=== PATIENT | male | born 1955 | race Caucasian/White ===

== ENCOUNTER 2016-11-13 09:52 | Inpatient (IN) | payer BC, OTHER ==
[~2016-11-13] VITALS: Ht 170.2 cm; Wt 50.0 kg
[~2016-11-13 09:52] MED LIST: CRG625 PO; LEVO88TA PO; LPT40 PO; LVS125 PO; MORP15TA PO; NTRGSL/4 UT; OXGN; PANT20TA PO; PLV75 PO; PRED10TA PO; RST15 PO; SPRIN/30 INH; SYMIN160 INH; THEO1CAP2 PO; VNTHFA/IN INH
[2016-11-13] MEDS ORDERED: MAGNESIUM SULFATE 1GM / D5W 1 GM BAG ONE (09:59)
--- NOTE | 2016-11-13 10:10 | EMERGENCY ROOM VISIT NOTE ---
History Report prepared by Radhika: Brian Barahona Under the Supervision of: Dr. Ted Carpenter M.D. First contact with patient: 09:54 Stated Complaint: SHORTNESS OF BREATH History of Present Illness The patient is a 60 year old male who presents to the Emergency Room via EMS with complaints of severe and persistent shortness of breath starting today. He has worsening difficulty breathing with movement. The patient cannot receive breathing treatments or be placed on BiPAP. He received 125 mg Solu-Medrol in route to the Emergency Room with some relief. He denies fevers, chills, chest pain, or any other complaints. He has a history of COPD and respiratory failure. Source of History: patient Onset: today Position: other (global) Symptom Intensity: severe Quality: other (shortness of breath) Timing: other (persistent) Modifying Factors (Worsening): movement Modifying Factors (Relieving): other (received 125 mg Solu-Medrol in route to the Emergency Room with some relief) Associated Symptoms: No chest pain, No chills, No fevers Review of Systems See HPI for pertinent positives & negatives. A total of 10 systems reviewed and were otherwise negative. Past Medical & Surgical Medical Problems: (1) Acute respiratory failure (2) Anxiety (3) ARDS (adult respiratory distress syndrome) (4) CAD (coronary artery disease) (5) Chest pain (6) Constipation (7) COPD (chronic obstructive pulmonary disease) (8) COPD exacerbation (9) COPD exacerbation (10) COPD exacerbation (11) COPD exacerbation (12) COPD exacerbation (13) COPD exacerbation (14) Coronary Atherosclerosis Of [place] Coronary Vessel (15) Dyslipidemia (16) Emphysema (17) Hypertension Nos (18) Hypothyroidism (19) Pneumonia (20) Respiratory distress (21) Respiratory failure (22) Severe persistent cold-induced asthma with acute exacerbation (23) Supplemental Oxygen (24) Very severe chronic obstructive pulmonary disease Surgical Problems: (1) History of tonsillectomy (2) Percutaneous Translum Coron Angioplasty Status (3) Stented coronary artery Family History Not obtainable due to adoption Social History Smoking Status: Former Smoker Alcohol Use: none Drug Use: none Marital Status: Housing Status: lives with family Occupation Status: retired Current/Historical Medications Scheduled Atorvastatin (Atorvastatin Calcium), 40 MG PO HS Budesonide/Formoterol Fumarate (Symbicort 160/4.5 Inhaler ), 2 PUFFS INH BID Carvedilol (Carvedilol), 6.25 MG PO BID Clopidogrel Bisulfate (Clopidogrel), 75 MG PO DAILY Oxygen (Oxygen), 2-3 LITER NA CONTINOUS Pantoprazole Sodium (Protonix), 40 MG PO DAILY Prednisone Tab (Prednisone), 10 MG PO QAM Theophylline (Williams-24), 400 MG PO DAILY Tiotropium Carmichael (Spiriva Handihaler), 1 PUFF INH DAILY Scheduled PRN Albuterol Hfa (Ventolin Hfa), 2 PUFFS INH QID PRN for Wheezing Hyoscyamine Sulfate (Hyoscyamine Sulfate), 0.125 MG PO Q6H PRN for Abdominal Pain Morphine Sulfate Ir (Morphine Sulfate Ir), 15-30 MG PO Q4H PRN for Pain Nitroglycerin (Nitrostat), 0.4 MG UT UD PRN for Chest Pain Temazepam (Temazepam), 15 MG PO HS PRN for Sleep Allergies Coded Allergies: Doxycycline (Unverified Allergy, Intermediate, TURNS RED, 11/13/16) Albuterol (Verified Allergy, Mild, hypoxia, 11/13/16) Azithromycin (Verified Allergy, Mild, hypoxia, 11/13/16) Ipratropium (Verified Allergy, Mild, hypoxia, 11/13/16) Levofloxacin (Verified Allergy, Mild, hypoxia, 11/13/16) Physical Exam Vital Signs Date Time Temp Pulse Resp B/P Pulse Ox O2 Delivery O2 Flow Rate FiO2 11/13/16 11:52 73 16 96 11/13/16 11:36 76 16 135/84 98 Nasal Cannula 3.0 11/13/16 11:22 76 14 100 11/13/16 11:20 135/84 11/13/16 10:52 77 14 99 11/13/16 10:32 76 20 134/98 96 Nasal Cannula 3.0 Nebulizer 11/13/16 10:30 134/98 11/13/16 10:22 79 17 97 11/13/16 10:13 96 Nasal Cannula 2.0 11/13/16 10:07 36.7 81 20 153/133 96 Nasal Cannula 3.0 11/13/16 10:07 96 Nasal Cannula 3.0 11/13/16 10:02 82 11/13/16 09:55 153/133 Physical Exam GENERAL: Patient is a healthy-appearing well-nourished HEAD: Normocephalic atraumatic EYES: Ocular movements intact pupils equal and react to light OROPHARYNX mucous membranes are moist no exudates present no erythema or edema present NECK: Supple no nuchal rigidity CHEST: Good equal expansion LUNGS: Says three words per breath. Distant lung sounds. CARDIAC: Normal S1 and S2 ABDOMEN: Soft nontender no guarding BACK: No CVA tenderness EXTREMITIES: No pain upon palpation normal muscle strength in all groups no clubbing cyanosis or edema NEURO: Patient is following commands is answering questions appropriately. Alert and oriented x3 Cranial Nerves 2-12 grossly intact Medical Decision & Procedures ER Provider Diagnostic Interpretation: X-ray results as stated below per interpretation by me and the radiologist: CHEST ONE VIEW PORTABLE CLINICAL HISTORY: Shortness of breath COMPARISON STUDY: 08/28/2016 FINDINGS: The cardiac and mediastinal contours remain stable. There is mild elevation of the interstitium similar to the prior study likely chronic. There is no lobar consolidation. There are no pleural effusions. There is underlying emphysema.[ IMPRESSION: Pulmonary emphysema and mild interstitial thickening similar to the prior study. No evidence of focal pulmonary consolidation. Electronically signed by: Remi Ly M.D. 11/13/2016 10:22 AM Dictated Date/Time: 11/13/2016 10:20 AM Laboratory Results 11/13/16 10:11 Red Blood Count 4.49, Mean Corpuscular Volume 96.7, Mean Corpuscular Hemoglobin 31.4, Mean Corpuscular Hemoglobin Concent 32.5, Mean Platelet Volume 9.3, Neutrophils (%) (Auto) 84.9, Lymphocytes (%) (Auto) 12.3, Monocytes (%) (Auto) 0.3, Eosinophils (%) (Auto) 2.0, Basophils (%) (Auto) 0.2, Neutrophils # (Auto) 10.11, Lymphocytes # (Auto) 1.46, Monocytes # (Auto) 0.03, Eosinophils # (Auto) 0.24, Basophils # (Auto) 0.02 11/13/16 10:11 Test 11/13/16 10:11 11/13/16 10:12 White Blood Count 11.90 K/uL (4.8-10.8) Red Blood Count 4.49 M/uL (4.7-6.1) Hemoglobin 14.1 g/dL (14.0-18.0) Hematocrit 43.4 % (42-52) Mean Corpuscular Volume 96.7 fL (80-100) Mean Corpuscular Hemoglobin 31.4 pg (25-34) Mean Corpuscular Hemoglobin Concent 32.5 g/dl (32-36) Platelet Count 189 K/uL (130-400) Mean Platelet Volume 9.3 fL (7.4-10.4) Neutrophils (%) (Auto) 84.9 % Lymphocytes (%) (Auto) 12.3 % Monocytes (%) (Auto) 0.3 % Eosinophils (%) (Auto) 2.0 % Basophils (%) (Auto) 0.2 % Neutrophils # (Auto) 10.11 K/uL (1.4-6.5) Lymphocytes # (Auto) 1.46 K/uL (1.2-3.4) Monocytes # (Auto) 0.03 K/uL (0.11-0.59) Eosinophils # (Auto) 0.24 K/uL (0-0.5) Basophils # (Auto) 0.02 K/uL (0-0.2) RDW Standard Deviation 50.7 fL (36.4-46.3) RDW Coefficient of Variation 14.2 % (11.5-14.5) Immature Granulocyte % (Auto) 0.3 % Immature Granulocyte # (Auto) 0.04 K/uL (0.00-0.02) Prothrombin Time 10.7 SECONDS (9.0-12.0) Prothromb Time International Ratio 1.0 (0.9-1.1) Activated Partial Thromboplast Time 24.8 SECONDS (21.0-31.0) Partial Thromboplastin Ratio 1.0 Anion Gap 9.0 mmol/L (3-11) Est Creatinine Clear Calc Drug Dose 75.2 ml/min Estimated GFR () 115.9 Estimated GFR (Non- 100.0 BUN/Creatinine Ratio 25.8 (10-20) Calcium Level 9.5 mg/dl (8.5-10.1) Total Bilirubin 0.7 mg/dl (0.2-1) Aspartate Amino Transf (AST/SGOT) 15 U/L (15-37) Alanine Aminotransferase (ALT/SGPT) 17 U/L (12-78) Alkaline Phosphatase 77 U/L (45-117) Total Creatine Kinase 35 U/L (39-308) Creatine Kinase MB 1.8 ng/ml (0.5-3.6) Creatine Kinase MB Ratio 5.1 (0-3.0) Troponin I < 0.015 ng/ml (0-0.045) Total Protein 6.3 gm/dl (6.4-8.2) Albumin 3.5 gm/dl (3.4-5.0) Globulin 2.8 gm/dl (2.5-4.0) Albumin/Globulin Ratio 1.3 (0.9-2) Influenza Type A (RT-PCR) Neg for Influ A (NEG) Influenza Type B (RT-PCR) Neg for Influ B (NEG) Labs reviewed by ED physician. Medications Administered Medications (Trade) Dose Ordered Sig/Mau Route Start Time Stop Time Status Last Admin Dose Admin Magnesium Sulfate (Magnesium Sulfate) 1 gm STK-MED ONCE .ROUTE 11/13/16 09:59 11/13/16 10:01 DC 11/13/16 10:05 1 GM Morphine Sulfate (MoRPHine SULFATE INJ) 6 mg NOW STAT IV 11/13/16 10:42 11/13/16 10:45 DC 11/13/16 11:03 6 MG Ondansetron HCl (Zofran Inj) 4 mg NOW STAT IV 11/13/16 10:42 11/13/16 10:45 DC 11/13/16 11:02 4 MG Piperacillin Sod/ Tazobactam Sod 4.5 gm 4.5 gm NOW STAT IV 11/13/16 10:42 11/13/16 10:45 DC 11/13/16 11:04 4.5 GM Vancomycin HCl/ Sodium Chloride (Vancomycin Inj/ Nss 250ml) 270 ml @ 125 mls/hr NOW STAT IV 11/13/16 10:42 11/13/16 14:20 DC 11/13/16 11:36 125 MLS/HR ECG Indication: SOB/dyspnea Rate (beats per minute): 80 Rhythm: normal sinus Findings: no acute ischemic change, no ectopy ED Course 0954: Past medical records reviewed. The patient was evaluated in room A12B. A complete history and physical examination was performed. 0959: Magnesium Sulfate 1 gm IV 1042: Vancomycin HCl 1000 mg/Sodium Chloride 270 ml @ 125 mls/hr IV, Zosyn IV 4.5 gm IV, Zofran Inj 4 mg IV, Morphine Sulfate 6 mg IV 1114: Upon reexamination the patient is resting comfortably. I discussed results and treatment plan with the patient. He verbalizes agreement and understanding. [facility] The patient will be evaluated for further management. Medical Decision Differential diagnosis: Etiologies such as infections, reactive airway disease, pneumonia, pneumothorax , COPD, CHF, cardiac ischemia, pulmonary embolism, musculoskeletal, gastrointestinal, as well as others were entertained. This is a 60-year-old male who presents emergency department complaining of shortness of breath. The patient has a history of severe COPD disease. He is allergic to albuterol and cannot take inhalers. He was given Solu-Medrol by EMS on the way to the hospital. I will start the patient on Zosyn and vancomycin as he is allergic to Levaquin and doxycycline as well as azithromycin. I did discuss the case with the hospitalist service who agreed to admit the patient. Patient was in agreement with the treatment plan. Consults Time Called: 1113 Consulting Physician: [facility] Returned Call: [phone] [facility]. Impression Primary Impression: COPD exacerbation Scribe Attestation The scribe's documentation has been prepared under my direction and personally reviewed by me in its entirety. I confirm that the note above accurately reflects all work, treatment, procedures, and medical decision making performed by me. Departure Information Dispostion Being Evaluated By Hospitalist Referrals Hugo Ramos M.D. (PCP)
--- NOTE | 2016-11-13 10:24 | DIAGNOSTIC IMAGING REPORT ---
CHEST ONE VIEW PORTABLE CLINICAL HISTORY: Shortness of breath COMPARISON STUDY: 08/28/2016 FINDINGS: The cardiac and mediastinal contours remain stable. There is mild elevation of the interstitium similar to the prior study likely chronic. There is no lobar consolidation. There are no pleural effusions. There is underlying emphysema.[ IMPRESSION: Pulmonary emphysema and mild interstitial thickening similar to the prior study. No evidence of focal pulmonary consolidation. Electronically signed by: Remi Ly M.D. 11/13/2016 10:22 AM Dictated Date/Time: 11/13/2016 10:20 AM
[2016-11-13 10:26] LABS: BASO % 0.2 %; BASO ABS # 0.02 K/uL (0-0.2); COMPLETE YES; HEMATOCRIT 43.4 % (42-52); IG% 0.3 %; LYMPH % 12.3 %; LYMPH ABS # 1.46 K/uL (1.2-3.4); MEAN CELL VOLUME 96.7 fL (80-100); MEAN CORPUSCULAR HEMOGLOBIN 31.4 pg (25-34); MEAN CORPUSCULAR HGB CONC 32.5 g/dl (32-36); MEAN PLATELET VOLUME 9.3 fL (7.4-10.4); MONO % 0.3 %; NEUT % 84.9 %; PLATELET COUNT 189 K/uL (130-400); RED BLOOD COUNT 4.49 M/uL (4.7-6.1)
[2016-11-13] MEDS ORDERED: ONDANSETRON INJ 2 MG/ML 2 ML VIAL IV STA (10:42)
[2016-11-13] MEDS ORDERED: MoRPHine SULFATE 10 MG/ML CARP/VIAL IV STA (10:42)
[2016-11-13] MEDS ORDERED: VANCOMYCIN INJ 1,000 MG in SODIUM CHLORIDE 0.9% 250ML 250 ML IV STA (10:42)
[2016-11-13] MEDS ORDERED: PIPERACILLIN/TAZOBACTAM 4.5 GM/100ML D5W IV STA (10:42)
[2016-11-13 10:49] LABS: ALT/SGPT 17 U/L (12-78); BLOOD UREA NITROGEN 19 mg/dl (7-18); BUN/CREATININE RATIO 25.8 (10-20); CALCIUM 9.5 mg/dl (8.5-10.1); CARBON DIOXIDE 35 mmol/L (21-32); CHLORIDE 101 mmol/L (98-107); CREATININE 0.72 mg/dl (0.60-1.40); GLUCOSE 130 mg/dl (70-99); POTASSIUM 4.1 mmol/L (3.5-5.1); SODIUM 145 mmol/L (136-145)
[2016-11-13 10:54] LABS: ALB/GLOB RATIO 1.3 (0.9-2); ALKALINE PHOSPHATASE 77 U/L (45-117); AST/SGOT 15 U/L (15-37); CKMB/CK RATIO 5.1 (0-3.0)
--- NOTE | 2016-11-13 11:44 | History and Physical ---
History & Physical Date & Time of Service: Nov 13, 2016 at 11:42 Chief Complaint: Shortness Of Breath Primary Care Physician: Hugo Ramos M.D. History of Present Illness Source: patient This is a 60 yo M with PMHx of COPD on chronic O2, CAD, HTN, dyslipidemia, hypothyroidism, anxiety who has been admitted 9 times in the past year for complaints of shortness of breath in relation to copd exacerbations. Pt presents today with worsening sob for the past 3 days at rest and upon exertion. He had a sick appointment with Dr. Ramos scheduled for today but was did not go because his breathing worsened and instead presented to the ED. Pt reports cough with sputum production is new. He denies sick contacts or recent respiratory illness. He denies fever, chills, body aches. EMS administered Solumedrol 125 mcg in route. He denies having any albuterol nebulizers and adamantly refuses to have these due to previous hx where he needed to be intubated after this. He has been intubated twice. Pt reports his breathing is improved at this time. Past Medical/Surgical History Medical Problems: (1) Acute respiratory failure Status: Resolved (2) Anxiety Status: Chronic (3) ARDS (adult respiratory distress syndrome) Status: Resolved (4) CAD (coronary artery disease) Status: Chronic (5) Chest pain Status: Resolved (6) Constipation Status: Resolved (7) COPD (chronic obstructive pulmonary disease) Status: Chronic (8) COPD exacerbation Status: Resolved (9) COPD exacerbation Status: Resolved (10) COPD exacerbation Status: Resolved (11) COPD exacerbation Status: Resolved (12) COPD exacerbation Status: Resolved (13) COPD exacerbation Status: Resolved (14) Coronary Atherosclerosis Of [place] Coronary Vessel Status: Chronic (15) Dyslipidemia Status: Chronic (16) Emphysema Status: Resolved (17) Hypertension Nos Status: Chronic (18) Hypothyroidism Status: Chronic (19) Pneumonia Status: Resolved (20) Respiratory distress Status: Resolved (21) Respiratory failure Status: Resolved (22) Severe persistent cold-induced asthma with acute exacerbation Status: Resolved (23) Supplemental Oxygen Status: Chronic (24) Very severe chronic obstructive pulmonary disease Status: Resolved Surgical Problems: (1) History of tonsillectomy Status: Resolved (2) Percutaneous Translum Coron Angioplasty Status Status: Resolved (3) Stented coronary artery Status: Chronic Family History Not obtainable due to adoption Social History Smoking Status: Former Smoker Drug Use: none Marital Status: Housing status: lives with significant other Occupational Status: retired Immunizations History of Influenza Vaccine: Yes Influenza Vaccine Date: Jul 18, 2011 History of Tetanus Vaccine?: Yes History of Pneumococcal: Yes Pneumococcal Date: Jul 18, 2011 History of Hepatitis B Vaccine: No Multi-Drug Resistant Organisms History of MDRO: No Allergies Coded Allergies: Doxycycline (Unverified Allergy, Intermediate, TURNS RED, 11/13/16) Albuterol (Verified Allergy, Mild, hypoxia, 11/13/16) Azithromycin (Verified Allergy, Mild, hypoxia, 11/13/16) Ipratropium (Verified Allergy, Mild, hypoxia, 11/13/16) Levofloxacin (Verified Allergy, Mild, hypoxia, 11/13/16) Home Medications Scheduled Atorvastatin (Atorvastatin Calcium), 40 MG PO HS Budesonide/Formoterol Fumarate (Symbicort 160/4.5 Inhaler ), 2 PUFFS INH BID Carvedilol (Carvedilol), 6.25 MG PO BID Clopidogrel Bisulfate (Clopidogrel), 75 MG PO DAILY Oxygen (Oxygen), 2-3 LITER NA CONTINOUS Pantoprazole Sodium (Protonix), 40 MG PO DAILY Prednisone Tab (Prednisone), 10 MG PO QAM Theophylline (Williams-24), 400 MG PO DAILY Tiotropium Dexter (Spiriva Handihaler), 1 PUFF INH DAILY Scheduled PRN Albuterol Hfa (Ventolin Hfa), 2 PUFFS INH QID PRN for Wheezing Hyoscyamine Sulfate (Hyoscyamine Sulfate), 0.125 MG PO Q6H PRN for Abdominal Pain Morphine Sulfate Ir (Morphine Sulfate Ir), 15-30 MG PO Q4H PRN for Pain Nitroglycerin (Nitrostat), 0.4 MG UT UD PRN for Chest Pain Temazepam (Temazepam), 15 MG PO HS PRN for Sleep Review of Systems Constitutional: No chills, No fever, No weight loss Eyes: No diplopia ENT: No sore throat, No tinnitus, No trouble swallowing Respiratory: + cough, + shortness of breath, + sputum, + wheezing Cardiovascular: No chest pain, No palpitations Abdomen: No diarrhea, No nausea, No pain, No vomiting Musculoskeletal: No calf pain, No joint pain, No swelling Genitourinary - Male: No dysuria, No hematuria Neurologic: No numbness/tingling Integumentary: No itch, No rash Physical Exam Vital Signs Date Time Temp Pulse Resp B/P Pulse Ox O2 Delivery O2 Flow Rate FiO2 11/13/16 11:36 76 16 135/84 98 Nasal Cannula 3.0 11/13/16 10:32 76 20 134/98 96 Nasal Cannula 3.0 Nebulizer 11/13/16 10:13 96 Nasal Cannula 2.0 11/13/16 10:07 36.7 81 20 153/133 96 Nasal Cannula 3.0 11/13/16 10:07 96 Nasal Cannula 3.0 11/13/16 10:02 82 General Appearance: + thin, + pertinent finding (frail, appears much older than stated age) Head: normocephalic Eyes: PERRL, EOMI, + pertinent finding (wearing glasses) ENT: hearing grossly normal, pharynx normal, + pertinent finding (mucous membranes dry) Neck: supple, no JVD Respiratory/Chest: + pertinent finding (+ barrel chested, +prolonged expiratory phase, 2 L O2 via nc sats =94% at bedsided, diminished breath sounds throughout, faint crackles in the RLL. No adventitious breath sounds. ) Cardiovascular: regular rate, rhythm, no murmur, normal peripheral pulses Abdomen/GI: normal bowel sounds, non tender, soft Back: normal inspection, no CVA tenderness Extremities/Musculoskelatal: no calf tenderness, no pedal edema, + pertinent finding (thin extremities) Neurologic/Psych: normal mood/affect, oriented x 3 Skin: normal color, warm/dry Diagnostics Laboratory Results Results Past 24 Hours Test 11/13/16 10:11 11/13/16 10:12 Range/Units White Blood Count 11.90 4.8-10.8 K/uL Red Blood Count 4.49 4.7-6.1 M/uL Hemoglobin 14.1 14.0-18.0 g/dL Hematocrit 43.4 42-52 % Mean Corpuscular Volume 96.7 80-100 fL Mean Corpuscular Hemoglobin 31.4 25-34 pg Mean Corpuscular Hemoglobin Concent 32.5 32-36 g/dl Platelet Count 189 130-400 K/uL Mean Platelet Volume 9.3 7.4-10.4 fL Neutrophils (%) (Auto) 84.9 % Lymphocytes (%) (Auto) 12.3 % Monocytes (%) (Auto) 0.3 % Eosinophils (%) (Auto) 2.0 % Basophils (%) (Auto) 0.2 % Neutrophils # (Auto) 10.11 1.4-6.5 K/uL Lymphocytes # (Auto) 1.46 1.2-3.4 K/uL Monocytes # (Auto) 0.03 0.11-0.59 K/uL Eosinophils # (Auto) 0.24 0-0.5 K/uL Basophils # (Auto) 0.02 0-0.2 K/uL RDW Standard Deviation 50.7 36.4-46.3 fL RDW Coefficient of Variation 14.2 11.5-14.5 % Immature Granulocyte % (Auto) 0.3 % Immature Granulocyte # (Auto) 0.04 0.00-0.02 K/uL Sodium Level 145 136-145 mmol/L Potassium Level 4.1 3.5-5.1 mmol/L Chloride Level 101 98-107 mmol/L Carbon Dioxide Level 35 21-32 mmol/L Anion Gap 9.0 3-11 mmol/L Blood Urea Nitrogen 19 7-18 mg/dl Creatinine 0.72 0.60-1.40 mg/dl Est Creatinine Clear Calc Drug Dose 75.2 ml/min Estimated GFR () 115.9 Estimated GFR (Non- 100.0 BUN/Creatinine Ratio 25.8 10-20 Random Glucose 130 70-99 mg/dl Calcium Level 9.5 8.5-10.1 mg/dl Total Bilirubin 0.7 0.2-1 mg/dl Aspartate Amino Transf (AST/SGOT) 15 15-37 U/L Alanine Aminotransferase (ALT/SGPT) 17 12-78 U/L Alkaline Phosphatase 77 45-117 U/L Total Creatine Kinase 35 39-308 U/L Creatine Kinase MB 1.8 0.5-3.6 ng/ml Creatine Kinase MB Ratio 5.1 0-3.0 Troponin I < 0.015 0-0.045 ng/ml Total Protein 6.3 6.4-8.2 gm/dl Albumin 3.5 3.4-5.0 gm/dl Globulin 2.8 2.5-4.0 gm/dl Albumin/Globulin Ratio 1.3 0.9-2 Diagnostic Radiology CHEST ONE VIEW PORTABLE CLINICAL HISTORY: Shortness of breath COMPARISON STUDY: 08/28/2016 FINDINGS: The cardiac and mediastinal contours remain stable. There is mild elevation of the interstitium similar to the prior study likely chronic. There is no lobar consolidation. There are no pleural effusions. There is underlying emphysema.[ IMPRESSION: Pulmonary emphysema and mild interstitial thickening similar to the prior study. No evidence of focal pulmonary consolidation. Electronically signed by: Remi Ly M.D. 11/13/2016 10:22 AM Dictated Date/Time: 11/13/2016 10:20 AM The status of this report is Signed. Draft = Not yet reviewed or approved by Radiologist. Signed = Reviewed and approved by Radiologist. EKG Vent. rate 80 BPM CO interval * ms QRS duration 62 ms QT/QTc 326/375 ms P-R-T axes * 57 16 Impression Assessment and Plan This is a 60 yo M with PMHx of COPD, CAD, HTN, dyslipidemia, hypothyroidism, anxiety who has been admitted 9 times in the past year for complaints of shortness of breath in relation to copd exacerbations. Acute exacerbation of COPD - Admit to med/surg - Received Solumedrol 125 mcg by EMS, breathing improved since, will continue 60 mg Q8 - NO nebulizers! Pt refuses these as this has led to intubation x 2 in the pts past - Currently sats in mid 90s on 2 L O2 via NC - Last PFTs done in 2014 with 28% lung function - Follows with Dr. Lopez as outpatient for pulm- pt is feeling better and reports breathing is improved since solumedrol. Consider pulm consult if worsening sx but not at this time. 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 - Discussed with he patient and his at bedside. Level of Care Med/Surg Advanced Directives Existing Advance Directive: Yes Existing Living Will: Yes Existing Power of Restaurant Inspector: Yes Resuscitation Status FULL RESUSCITATION VTE Prophylaxis VTE Risk Assessment Done? Y/N: Yes Risk Level: Low Given or contraindicated: Unfractionated heparin SQ, T.E.D. Stockings, SCD's Reviewed: Pt Seen/Exam by Me History Pt is feeling much improved. His baseline is no SOB while at rest, but always has SOB with ambulation, even short distances. It has been worsening recently "so it was time to come in". Has been tolerating PO without issue. No chest pain. Pt states that he took a sleeping pill for the first time in a long time last night. Would like one if needed. Agree with HPI/ROS as noted. General Appearance: no apparent distress, thin Respiratory: lungs clear, no respiratory distress, decreased breath sounds Cardiovascular: regular rate, rhythm, no edema Gastrointestinal: non tender, soft Extremities: non-tender, no pedal edema Neurologic/Psychiatric: alert, normal mood/affect Skin Characteristics: normal color, warm/dry Assessment/Plan Agree with plan as outlined above Pt is much improved s/p steroids CXR is clear for PNA and pt afebrile Mild WBC on chronic prednisone Hold abx for now Takes morphine 5x/day while awake to help regulate respiratory drive. Ordered this way. Do not wake pt for this, but distribute throughout the day. Requests puneet VALENZUELA
[2016-11-13 11:56] LABS: INFLUENZA A PCR Neg for Influ A (NEG); INFLUENZA B PCR Neg for Influ B (NEG)
[2016-11-13] MEDS ORDERED: HYOSCYAMINE SULFATE 0.125 MG SL TAB PO PRN (12:00)
[2016-11-13] MEDS ORDERED: ONDANSETRON INJ 2 MG/ML 2 ML VIAL IV PRN (12:00)
[2016-11-13] MEDS ORDERED: ALBUTEROL HFA 8 GM INHALER INH PRN (12:00)
[2016-11-13] MEDS ORDERED: MoRPHine SULFATE IR 15 MG TAB (IMMEDIATE RELEASE) PO PRN (12:00)
[2016-11-13] MEDS ORDERED: MAGNESIUM HYDROXIDE SUSP 30 ML UDC PO PRN (12:00)
[2016-11-13] MEDS ORDERED: ACETAMINOPHEN 325 MG TAB PO PRN (12:00)
[2016-11-13] MEDS ORDERED: NITROGLYCERIN 0.4 MG SL PER TAB CHARGE UT PRN (12:00)
[2016-11-13] MEDS ORDERED: POLYETHYLENE (MIRALAX) 17 GM PACK PO PRN (12:00)
[2016-11-13] MEDS ORDERED: TEMAZEPAM 15 MG CAP PO PRN (12:00)
[2016-11-13 14:45] VITALS: O2SAT 98; Ht 170.2 cm; Wt 50.0 kg
[2016-11-13] MEDS ORDERED: VANCOMYCIN CONSULT ACTIVE PRN (15:00)
[2016-11-13 15:15] LABS: PROTHROMBIN TIME (PATIENT) 10.7 SECONDS (9.0-12.0)
[2016-11-13] MEDS ORDERED: ZOLPIDEM TARTRATE 5 MG TAB PO PRN (15:30)
[2016-11-13] MEDS: METHYLPREDNISOLONE IV 60 MG in SYRINGE 0 ML IV SCH ×2 (15:47→22:37)
[2016-11-13 16:00] VITALS: O2SAT 96
[2016-11-13] MEDS: MoRPHine SULFATE IR 15 MG TAB (IMMEDIATE RELEASE) PO SCH ×2 (17:14→18:45)
[2016-11-13] MEDS ORDERED: PIPERACILL/TAZOBAC IV 4.5 GM in DEXTROSE 5% 100ML 100 ML IV SCH (20:00)
[2016-11-13] MEDS: BUDESONIDE/FORMOTEROL FUMARATE 160/4.5 60 PUFFS/INHALER INH SCH (20:05)
[2016-11-13] MEDS: CARVEDILOL 6.25 MG TAB PO SCH (20:05)
[2016-11-13] MEDS: HEPARIN SOD 5000 UNIT/0.5 ML CARP SQ SCH (20:06)
[2016-11-13] MEDS ORDERED: ATORVASTATIN 40 MG TAB PO SCH (21:00)
[2016-11-13] MEDS ORDERED: VANCOMYCIN INJ 1,000 MG in SODIUM CHLORIDE 0.9% 250ML 250 ML IV SCH (21:00)
[2016-11-13 21:22] VITALS: BP 145/91; PULSE 82
[2016-11-14 00:10] VITALS: BP 118/76; PULSE 78; TEMP 36.6; O2SAT 97
[2016-11-14 05:23] LABS: URINE APPEARANCE TURBID (CLEAR); URINE BILIRUBIN NEG (NEG); URINE COLOR YELLOW; URINE NITRITE NEG (NEG); URINE SPECIFIC GRAVITY 1.019 (1.000-1.030); UROBILINOGEN NEG (NEG)
[2016-11-14 05:31] LABS: MANUAL MICROSCOPIC REQUIRED? NO; REVIEW REQ? NO
[2016-11-14] MEDS: MoRPHine SULFATE IR 15 MG TAB (IMMEDIATE RELEASE) PO SCH ×3 (06:17→12:52)
[2016-11-14] MEDS: METHYLPREDNISOLONE IV 60 MG in SYRINGE 0 ML IV SCH (06:42)
[2016-11-14 07:00] VITALS: BP 125/77; PULSE 75; TEMP 36.7; O2SAT 100
[2016-11-14 08:00] VITALS: O2SAT 100
[2016-11-14] MEDS ORDERED: THEOPHYLLINE 400MG CONTROLLED REL TAB PO SCH (08:00)
[2016-11-14] MEDS ORDERED: BISACODYL 5 MG TABEC PO SCH (08:00)
[2016-11-14] MEDS ORDERED: PANTOprazole SOD 40 MG TAB PO SCH (08:00)
[2016-11-14] MEDS ORDERED: CLOPIDOGREL BISULFATE 75 MG TAB PO SCH (08:00)
[2016-11-14] MEDS ORDERED: SENNA 8.6 MG TAB PO SCH (08:00)
[2016-11-14] MEDS ORDERED: TIOTROPIUM BROMIDE 5 PUFF/90 MCG INH INH SCH (08:00)
[2016-11-14 08:03] LABS: COMPLETE YES; HEMATOCRIT 39.4 % (42-52); IG% 0.1 %; LYMPH % 2.5 %; LYMPH ABS # 0.26 K/uL (1.2-3.4); MEAN CELL VOLUME 93.6 fL (80-100); MEAN CORPUSCULAR HEMOGLOBIN 30.6 pg (25-34); MEAN CORPUSCULAR HGB CONC 32.7 g/dl (32-36); MEAN PLATELET VOLUME 9.5 fL (7.4-10.4); MONO % 5.1 %; NEUT % 92.3 %; PLATELET COUNT 192 K/uL (130-400); RED BLOOD COUNT 4.21 M/uL (4.7-6.1); WHITE BLOOD COUNT 10.49 K/uL (4.8-10.8)
[2016-11-14 08:29] LABS: BUN/CREATININE RATIO 28.1 (10-20); CALCIUM 9.3 mg/dl (8.5-10.1); CREATININE 0.75 mg/dl (0.60-1.40); POTASSIUM 4.3 mmol/L (3.5-5.1)
[2016-11-14] MEDS: CARVEDILOL 6.25 MG TAB PO SCH (09:30)
[2016-11-14] MEDS: BUDESONIDE/FORMOTEROL FUMARATE 160/4.5 60 PUFFS/INHALER INH SCH (09:30)
[2016-11-14] MEDS: HEPARIN SOD 5000 UNIT/0.5 ML CARP SQ SCH (09:34)
[2016-11-14] MEDS ORDERED: PRED10TA PO (11:14)
--- NOTE | 2016-11-14 11:22 | Discharge Instructions ---
Discharge Instructions Admission Reason for Admission: Copd Exacerbation (Jazmyn Dickinson PA-C) Discharge Discharge Diagnosis / Problem: Acute COPD exacerbation (Jazmyn Dickinson PA-C) Discharge Goals Goal(s): Decrease discomfort, Improve function (Jazmyn Dickinson PA-C) Activity Recommendations Activity Limitations: resume your previous activity Shower/Bathe: no limitations . (Jazmyn Dickinson PA-C) Instructions / Follow-Up Instructions / Follow-Up You were admitted to [facility] with acute exacerbation of COPD and diagnosed with the same. During your stay here you were treated with intravenous steroids, 1 day of intravenous antibiotics to cover for infectious process, and supportive oxygen. You were screened for influenzae but this was negative. Imaging studies which were completed include CXR which was negative for consolidations or acute findings related to an infectious process. This CXR showed chronic COPD changes which you were already aware of. Your shortness of breath resolved back to baseline with wearing oxygen 2 L by nasal cannula. Continue taking your inhalers as prescribed above. You were transitioned to a prednisone taper: see directions below: Take 6 tablets daily x 3 days, then 5 tabs daily x 3 days, then 4 tabs x 3 days, then 3 tabs x 3 days, then 2 tabs x 3 days, then 1 tablet daily x 3 days. You should resume taking Prednisone 10 mg starting the day after the above taper is complete. Follow up with your grain roaster, Dr. Gomez, within 1 week. Follow up with your Primary Care Provider, Dr. Ramos within 1 week. (Jazmyn Dickinson PA-C) Current Hospital Diet Patient's current hospital diet: AHA Diet (Heart Healthy) (Jazmyn Dickinson PA-C) Discharge Diet Recommended Diet: Regular Diet (Jazmyn Dickinson PA-C) Procedures Procedures Performed: CXR- 11/13/16 (Jazmyn Dickinson PA-C) Pending Studies Studies pending at discharge: no (Jazmyn Dickinson PA-C) Laboratory Results Last 24 Hours Test 11/14/16 05:00 11/14/16 07:45 Urine Color YELLOW Urine Appearance TURBID Urine pH 7.0 Urine Specific [place] 1.019 Urine Protein NEG Urine Glucose (UA) NEG Urine Ketones NEG Urine Occult Blood NEG Urine Nitrite NEG Urine Bilirubin NEG Urine Urobilinogen NEG Urine Leukocyte Esterase NEG Urine WBC (Auto) 0 /hpf Urine RBC (Auto) 5-10 /hpf Urine Hyaline Casts (Auto) 1-5 /lpf Urine Epithelial Cells (Auto) 10-20 /lpf Urine Bacteria (Auto) NEG White Blood Count 10.49 K/uL Red Blood Count 4.21 M/uL Hemoglobin 12.9 g/dL Hematocrit 39.4 % Mean Corpuscular Volume 93.6 fL Mean Corpuscular Hemoglobin 30.6 pg Mean Corpuscular Hemoglobin Concent 32.7 g/dl Platelet Count 192 K/uL Mean Platelet Volume 9.5 fL Neutrophils (%) (Auto) 92.3 % Lymphocytes (%) (Auto) 2.5 % Monocytes (%) (Auto) 5.1 % Eosinophils (%) (Auto) 0.0 % Basophils (%) (Auto) 0.0 % Neutrophils # (Auto) 9.68 K/uL Lymphocytes # (Auto) 0.26 K/uL Monocytes # (Auto) 0.54 K/uL Eosinophils # (Auto) 0.00 K/uL Basophils # (Auto) 0.00 K/uL RDW Standard Deviation 47.6 fL RDW Coefficient of Variation 13.9 % Immature Granulocyte % (Auto) 0.1 % Immature Granulocyte # (Auto) 0.01 K/uL Sodium Level 141 mmol/L Potassium Level 4.3 mmol/L Chloride Level 101 mmol/L Carbon Dioxide Level 32 mmol/L Anion Gap 8.0 mmol/L Blood Urea Nitrogen 21 mg/dl Creatinine 0.75 mg/dl Est Creatinine Clear Calc Drug Dose 72.2 ml/min Estimated GFR () 113.9 Estimated GFR (Non- 98.3 BUN/Creatinine Ratio 28.1 Random Glucose 127 mg/dl Calcium Level 9.3 mg/dl (Jazmyn Dickinson PA-C) Medical Emergencies . Who to Call and When: Medical Emergencies: If at any time you feel your situation is an emergency, please call 911 immediately. . (Jazmyn Dickinson PA-C) Non-Emergent Contact Non-Emergency issues call your: Primary Care Provider Call Non-Emergent contact if: you have a fever, your pain is worsening you develop shortness of breath, chest pain, abdominal pain or if you have other concerns with your health. . (Jazmyn Dickinson, SANDI) Past History Medical & Surgical History: (1) COPD exacerbation (Jazmyn Dickinson PA-C) . "Provider Documentation" section prepared by Violetta Dickinson. (Jazmyn Dickinson PA-C) VTE Core Measure Inpt VTE Proph given/why not?: Unfractionated heparin SQ, T.E.D. Stockings, SCD 's (Jazmyn Dickinson PA-C)
--- NOTE | 2016-11-14 11:39 | Discharge Summary ---
Discharge Summary Admission Date: Nov 13, 2016 at 12:27 Discharge Date: Nov 14, 2016 Discharge Disposition: Home Principal Diagnosis: Acute COPD exacerbation Problems/Secondary Diagnoses: (1) Anxiety Status: Chronic (2) COPD (chronic obstructive pulmonary disease) Status: Chronic (3) Coronary Atherosclerosis Of [place] Coronary Vessel Status: Chronic (4) Dyslipidemia Status: Chronic (5) Hypertension Nos Status: Chronic (6) Hypothyroidism Status: Chronic (7) Supplemental Oxygen Status: Chronic Immunizations: Have You Had Influenza Vaccine: Yes Influenza Vaccine Date: Jul 18, 2011 History of Tetanus Vaccine?: Yes History of Pneumococcal: Yes Pneumococcal Date: Jul 18, 2011 History of Hepatitis B Vaccine: No Procedures: CHEST ONE VIEW PORTABLE CLINICAL HISTORY: Shortness of breath COMPARISON STUDY: 08/28/2016 FINDINGS: The cardiac and mediastinal contours remain stable. There is mild elevation of the interstitium similar to the prior study likely chronic. There is no lobar consolidation. There are no pleural effusions. There is underlying emphysema.[ IMPRESSION: Pulmonary emphysema and mild interstitial thickening similar to the prior study. No evidence of focal pulmonary consolidation. Electronically signed by: Remi Ly M.D. 11/13/2016 10:22 AM Dictated Date/Time: 11/13/2016 10:20 AM Consultations: None (Jazmyn Dickinson PA-C) Medication Reconciliation New Medications: Prednisone Tab (Prednisone) 10 Mg Tab 10 MG PO DAILY for 18 Days, #54 TAB Take 6 tabs daily x 3 days, then 5 daily x 3 days, then 4 daily x 3 days, 2 daily x 3 days, 1 daily x 3 days. Continued Medications: Albuterol Hfa (Ventolin Hfa) 200 Puffs/96536 Mcg Aers 2 PUFFS INH QID PRN for Wheezing Atorvastatin (Atorvastatin Calcium) 40 Mg Tab 40 MG PO HS Budesonide/Formoterol Fumarate (Symbicort 160/4.5 Inhaler ) Aero 2 PUFFS INH BID Carvedilol (Carvedilol) 6.25 Mg Tab 6.25 MG PO BID Clopidogrel Bisulfate (Clopidogrel) 75 Mg Tab 75 MG PO DAILY Hyoscyamine Sulfate (Hyoscyamine Sulfate) 0.125 Mg Tab 0.125 MG PO Q6H PRN for Abdominal Pain Morphine Sulfate Ir (Morphine Sulfate Ir) 15 Mg Tab 15-30 MG PO Q4H PRN for Pain Take no more than 5 tablets per day Nitroglycerin (Nitrostat) 0.4 Mg Tab 0.4 MG UT UD PRN for Chest Pain PLACE ONE TABLET UNDER THE TONGUE EVERY 5 MINUTES FOR UP TO 3 DOSES OVER 15 MINUTES IF NEEDED FOR CHEST PAIN Oxygen (Oxygen) Gas 2-3 LITER NA CONTINOUS Pantoprazole Sodium (Protonix) 20 Mg Tab 40 MG PO DAILY Temazepam (Temazepam) 15 Mg Cap 15 MG PO HS PRN for Sleep Theophylline (Williams-24) 200 Mg Cap 400 MG PO DAILY Tiotropium [place] (Spiriva Handihaler) 30 Puff/540 Mcg Aerp 1 PUFF INH DAILY Discontinued Medications: Prednisone Tab (Prednisone) 10 Mg Tab 10 MG PO QAM Referrals At Discharge Follow up Referrals: Physician Referral - Within 1 Week with Hugo Ramos M.D. Clinical Education Academic Coordinator Referral - Within 1 Week with Jourdan Gomez M.D. Discharge Exam The patient was seen and examined this morning. Pt reports his breathing is much better today, cough improved, and sats in low -mid 90s on 2 L which is his baseline. He's feeling back to his normal self. Pt is able to tell me his previous prednisone taper has started at 60 mg. He has no other acute complaints. Had a BM this morning. Urinating without difficulty, clear yellow urine. Review of Systems: Constitutional: No chills, No fever Eyes: No diplopia ENT: No nasal symptoms, No sore throat, No tinnitus Respiratory: + cough (mild, no sputum production), + shortness of breath ( back to baseline, only on exertion. ), No dyspnea at rest Cardiovascular: No chest pain, No palpitations Abdomen: No diarrhea, No nausea, No pain, No vomiting Musculoskeletal: No calf pain, No joint pain, No swelling Genitourinary - Male: No dysuria Neurologic: No numbness/tingling, No weakness Physical Exam: General Appearance: no apparent distress, + thin, + pertinent finding ( appears much older than stated age) Eyes: PERRL, EOMI ENT: pharynx normal, + pertinent finding (mucous membranes moist) Neck: supple, no JVD Respiratory/Chest: no respiratory distress, no accessory muscle use, + pertinent finding (breath sounds improved in R middle and bilateral upper lobes , still diminished in lower lobes. + cough, nonproductive. ) Cardiovascular: regular rate, rhythm, normal peripheral pulses Abdomen / GI: normal bowel sounds, non tender, soft Extremities: no calf tenderness, no pedal edema, + pertinent finding (thin extremities) Neurologic/Psychiatric: alert, normal mood/affect, oriented x 3 Skin: warm/dry (Jazmyn Dickinson PA-C) Hospital Course Hospital Course: H&P per Violetta Dickinson PA-C This is a 60 yo M with PMHx of COPD on chronic O2, CAD, HTN, dyslipidemia, hypothyroidism, anxiety who has been admitted 9 times in the past year for complaints of shortness of breath in relation to copd exacerbations. Pt presents today with worsening sob for the past 3 days at rest and upon exertion. He had a sick appointment with Dr. Ramos scheduled for today but was did not go because his breathing worsened and instead presented to the ED. Pt reports cough with sputum production is new. He denies sick contacts or recent respiratory illness. He denies fever, chills, body aches. EMS administered Solumedrol 125 mcg in route. He denies having any albuterol nebulizers and adamantly refuses to have these due to previous hx where he needed to be intubated after this. He has been intubated twice. Pt reports his breathing is improved at this time. PE: General Appearance: + thin, + pertinent finding (frail, appears much older than stated age) Head: normocephalic Eyes: PERRL, EOMI, + pertinent finding (wearing glasses) ENT: hearing grossly normal, pharynx normal, + pertinent finding (mucous membranes dry) Neck: supple, no JVD Respiratory/Chest: + pertinent finding (+ barrel chested, +prolonged expiratory phase, 2 L O2 via nc sats =94% at bedsided, diminished breath sounds throughout, faint crackles in the RLL. No adventitious breath sounds. ) Cardiovascular: regular rate, rhythm, no murmur, normal peripheral pulses Abdomen/GI: normal bowel sounds, non tender, soft Back: normal inspection, no CVA tenderness Extremities/Musculoskelatal: no calf tenderness, no pedal edema, + pertinent finding (thin extremities) Neurologic/Psych: normal mood/affect, oriented x 3 Skin: normal color, warm/dry Hospital Course This is a 60 yo M with PMHx of COPD, CAD, HTN, dyslipidemia, hypothyroidism, anxiety who has been admitted 9 times in the past year for complaints of shortness of breath in relation to copd exacerbations. Acute exacerbation of COPD - Received Solumedrol 125 mcg by EMS, breathing improved since, will continue 60 mg Q8H x 24 hours- breathing continued to improve so was transitioned to oral prednisone 60 mg x 3 days, then 50 mg x 3 days, then 40 mg x 3 days and so forth until at 10 mg and should continue this dose until seen by pulmonology, Dr. Gomez, within 1 week. An appointment has been requested. - NO nebulizers! Pt refuses these as this has led to intubation x 2 in the pts past - Currently sats in mid 90s on 2 L O2 via NC - at baseline - Last PFTs done in 2014 with very poor lung function. - Received 1 dose of vanc and zosyn in the ED- no need to continue at this time - Flu A & B swabbed, negative. - Cont ventolin inhaler, theophylline CAD - Continue SALES SUPPORT REP plavix and asa Hypertension - Delio coreg BID Dyslipidemia - Cont atorvastatin Hx Constipation - Will give bowel regimen to prophylactically prevent- dulcolax, senna, MOM, mirilax - Last BM was this morning Hypothyroidism - Cont captain assistant levothyroxine GI ppx: protonix CODE STATUS: FULL CODE. Disposition: D/c to home today. Total Time Spent: Greater than 30 minutes This includes examination of the patient, discharge planning, medication reconciliation, and communication with other providers. (Jazmyn Dickinson PA-C) Discharge Instructions Please refer to the electronic Patient Visit Report (Discharge Instructions) for additional information. (Jazmyn Dickinson PA-C) Follow-Up Follow up with your Primary Care Provider within 1 week. Follow up with your Clinical Education Academic Coordinator within 1 week. (Jazmyn Dickinson PA-C) Additional Copies To Hugo Ramos M.D.; Jourdan Gomez M.D. Reviewed: Pt Seen/Exam by Me (Kaila Chin, ) History Pt states he is feeling back to his baseline. Still SOB with any ambulation, but better than the last several days and recovering more quickly. No chest pain or fever. Didn't eat much for breakfast, but states he doesn't generally. No intolerance to PO. Agree with HPI/ROS as noted. (Kaila Chin, ) Comments General Appearance: no apparent distress, thin Respiratory: lungs clear, no respiratory distress, decreased breath sounds Cardiovascular: regular rate, rhythm, no edema Gastrointestinal: non tender, soft Extremities: non-tender, no pedal edema Neurologic/Psychiatric: alert, normal mood/affect Skin Characteristics: normal color, warm/dry (Kaila Chin, ) Assessment/Plan Agree with plan as outlined above Pt is much improved s/p steroids CXR is clear for PNA and pt afebrile Mild WBC on chronic prednisone as outpt Will not d/c on abx Will use longer steroid taper as pt has had in the past. Pt is moving towards end stage COPD. He is high risk for readmission given the extent of his disease. (Kaila Chin, DO)
[2016-11-14 12:26] VITALS: BP 125/77; PULSE 75; TEMP 36.7; O2SAT 100
== END 2016-11-14 13:25 | disposition home or self-care (01) | DRG 192 ==
LOC: ENRESERVTM → ENRESERVDT → EDBD 09:52 → C.EDA 09:53 → C.MS4W 12:27
PROVIDERS: ADMIT Family Medicine; ATTEND Family Medicine
DX: J44.1 Chronic obstructive pulmonary disease with (acute) exacerbation (principal); F41.9 Anxiety disorder, unspecified; I10 Essential (primary) hypertension; I25.10 Atherosclerotic heart disease of native coronary artery without angina pectoris; E78.5 Hyperlipidemia, unspecified; E03.9 Hypothyroidism, unspecified; Z99.81 Dependence on supplemental oxygen; Z79.52 Long term (current) use of systemic steroids; Z87.891 Personal history of nicotine dependence

== ENCOUNTER 2016-11-16 13:40 | Emergency (ER) | payer BC ==
[~2016-11-16] VITALS: Ht 170.2 cm; Wt 48.0 kg
[~2016-11-16 13:40] MED LIST changes: -LEVO88TA PO
[2016-11-16 13:54] VITALS: TEMP 37; Ht 170.2 cm; Wt 48.0 kg
[2016-11-16 15:09] VITALS: O2SAT 100
[2016-11-16] MEDS ORDERED: ALBUT/IPRATROP 3MG/0.5MG NEB 3 ML VIAL INH SCH (16:00)
--- NOTE | 2016-11-16 16:12 | DIAGNOSTIC IMAGING REPORT ---
CHEST ONE VIEW PORTABLE CLINICAL HISTORY: "copd exacerbation" ] COMPARISON STUDY: 11/13/2016 FINDINGS: The heart is normal in size. There is radiographic evidence of emphysema. There is diffuse interstitial thickening, similar to the prior study. There is no focal pulmonary consolidation.[ IMPRESSION: Emphysema and interstitial thickening similar to the prior study. No evidence of focal pulmonary consolidation Electronically signed by: Remi Ly M.D. 11/16/2016 4:11 PM Dictated Date/Time: 11/16/2016 4:10 PM
[2016-11-16 16:25] LABS: COMPLETE YES; EOS % 0.1 %; HEMATOCRIT 43.5 % (42-52); IG% 0.2 %; LYMPH % 4.5 %; LYMPH ABS # 0.42 K/uL (1.2-3.4); MEAN CELL VOLUME 96.2 fL (80-100); MEAN CORPUSCULAR HEMOGLOBIN 31.4 pg (25-34); MEAN CORPUSCULAR HGB CONC 32.6 g/dl (32-36); MEAN PLATELET VOLUME 9.4 fL (7.4-10.4); MONO % 0.5 %; NEUT % 94.7 %; PLATELET COUNT 203 K/uL (130-400); RED BLOOD COUNT 4.52 M/uL (4.7-6.1); WHITE BLOOD COUNT 9.35 K/uL (4.8-10.8)
--- NOTE | 2016-11-16 16:26 | EMERGENCY ROOM VISIT NOTE ---
History Report prepared by Radhika: Iwona Oconnor Under the Supervision of: Dr. Alban Shafer M.D. First contact with patient: 15:54 Chief Complaint: RESPIRATORY DISTRESS Stated Complaint: SHORTNESS OF BREATH Nursing Triage Summary: RESPIRATORY DISTRESS. HX COPD. SATS 85% AT HOME ON 2L 02 NC. PT NOT ALLOWED TO HAVE NEBULIZER TREATMENTS OR NEBULIZED OXYGEN, PT REPORTS THE ONLY THING THAT WORKS FOR HIM IS "SOUMEDROL AND MORPHINE". EN ROUTE EMS GAVE 125 MCG SOULUMEDROL AND 5MG MORPHINE. History of Present Illness The patient is a 60 year old male who presents to the Emergency Room with complaints of constant respiratory distress occurring 4 hours prior to arrival. The patient states that he has COPD and these symptoms are similar to his COPD attacks. He was brought to the ED via EMS and received Solu-Medrol and Morphine. He denies any other symptoms at this time. 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 Review of Systems See HPI for pertinent positives & negatives. A total of 10 systems reviewed and were otherwise negative. 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 (23) Supplemental Oxygen (24) Very severe chronic obstructive pulmonary disease Surgical Problems: (1) History of tonsillectomy (2) Percutaneous Translum Coron Angioplasty Status (3) Stented coronary artery Family History Not obtainable due to adoption Social History Smoking Status: Former Smoker Alcohol Use: none Drug Use: none Marital Status: Housing Status: lives with family Occupation Status: retired Current/Historical Medications Scheduled Atorvastatin (Atorvastatin Calcium), 40 MG PO HS Budesonide/Formoterol Fumarate (Symbicort 160/4.5 Inhaler ), 2 PUFFS INH BID Carvedilol (Carvedilol), 6.25 MG PO BID Clopidogrel Bisulfate (Clopidogrel), 75 MG PO DAILY Oxygen (Oxygen), 2-3 LITER NA CONTINOUS Pantoprazole Sodium (Protonix), 40 MG PO DAILY Prednisone (Prednisone), 60 MG PO DAILY Prednisone Tab (Prednisone), 10 MG PO DAILY Theophylline (Williams-24), 400 MG PO DAILY Tiotropium [place] (Spiriva Handihaler), 1 PUFF INH DAILY Scheduled PRN Albuterol Hfa (Ventolin Hfa), 2 PUFFS INH QID PRN for Wheezing Hyoscyamine Sulfate (Hyoscyamine Sulfate), 0.125 MG PO Q6H PRN for Abdominal Pain Morphine Sulfate Ir (Morphine Sulfate Ir), 15-30 MG PO Q4H PRN for Pain Nitroglycerin (Nitrostat), 0.4 MG UT UD PRN for Chest Pain Temazepam (Temazepam), 15 MG PO HS PRN for Sleep Allergies Coded Allergies: Doxycycline (Unverified Allergy, Intermediate, TURNS RED, 11/16/16) Albuterol (Verified Allergy, Mild, hypoxia, 11/16/16) Azithromycin (Verified Allergy, Mild, hypoxia, 11/16/16) Ipratropium (Verified Allergy, Mild, hypoxia, 11/16/16) Levofloxacin (Verified Allergy, Mild, hypoxia, 11/16/16) Physical Exam Vital Signs Date Time Temp Pulse Resp B/P Pulse Ox O2 Delivery O2 Flow Rate FiO2 11/16/16 18:07 78 11/16/16 17:32 78 18 154/93 100 Nasal Cannula 3.0 11/16/16 16:20 80 22 97 Nasal Cannula 3.0 11/16/16 16:19 95 Nasal Cannula 3.0 11/16/16 15:12 74 20 143/95 100 Nasal Cannula 3.0 11/16/16 15:09 100 Nasal Cannula 3.0 11/16/16 14:00 79 11/16/16 13:54 88 Nasal Cannula 3.0 11/16/16 13:54 88 Nasal Cannula 3.0 11/16/16 13:54 37.0 80 28 193/106 89 Nasal Cannula 3.0 Physical Exam CONSTITUTIONAL: No acute distress. HEENT: No icterus, moist mucous membranes NECK: No meningismus, trachea is midline. CARDIOVASCULAR: Regular rate, normal perfusion RESPIRATORY: Bilateral wheezing. GASTROINTESTINAL: Non-tender GENITOURINARY: No flank tenderness MUSCULOSKELETAL: Full range of motion NEUROLOGIC: No acute gross focal deficits. PSYCHIATRIC: Normal affect SKIN: Normal for ethnicity. Medical Decision & Procedures ER Provider Diagnostic Interpretation: X-ray results as stated below per interpretation by me and the radiologist. CHEST ONE VIEW PORTABLE CLINICAL HISTORY: "copd exacerbation" ] COMPARISON STUDY: 11/13/2016 FINDINGS: The heart is normal in size. There is radiographic evidence of emphysema. There is diffuse interstitial thickening, similar to the prior study. There is no focal pulmonary consolidation.[ IMPRESSION: Emphysema and interstitial thickening similar to the prior study. No evidence of focal pulmonary consolidation Electronically signed by: Remi Ly M.D. 11/16/2016 4:11 PM Dictated Date/Time: 11/16/2016 4:10 PM Laboratory Results 11/16/16 14:50 Red Blood Count 4.52, Mean Corpuscular Volume 96.2, Mean Corpuscular Hemoglobin 31.4, Mean Corpuscular Hemoglobin Concent 32.6, Mean Platelet Volume 9.4, Neutrophils (%) (Auto) 94.7, Lymphocytes (%) (Auto) 4.5, Monocytes (%) (Auto) 0.5, Eosinophils (%) (Auto) 0.1, Basophils (%) (Auto) 0.0, Neutrophils # (Auto) 8.85, Lymphocytes # (Auto) 0.42, Monocytes # (Auto) 0.05, Eosinophils # (Auto) 0.01, Basophils # (Auto) 0.00 11/16/16 14:50 Test 11/16/16 14:50 11/16/16 14:53 White Blood Count 9.35 K/uL (4.8-10.8) Red Blood Count 4.52 M/uL (4.7-6.1) Hemoglobin 14.2 g/dL (14.0-18.0) Hematocrit 43.5 % (42-52) Mean Corpuscular Volume 96.2 fL (80-100) Mean Corpuscular Hemoglobin 31.4 pg (25-34) Mean Corpuscular Hemoglobin Concent 32.6 g/dl (32-36) Platelet Count 203 K/uL (130-400) Mean Platelet Volume 9.4 fL (7.4-10.4) Neutrophils (%) (Auto) 94.7 % Lymphocytes (%) (Auto) 4.5 % Monocytes (%) (Auto) 0.5 % Eosinophils (%) (Auto) 0.1 % Basophils (%) (Auto) 0.0 % Neutrophils # (Auto) 8.85 K/uL (1.4-6.5) Lymphocytes # (Auto) 0.42 K/uL (1.2-3.4) Monocytes # (Auto) 0.05 K/uL (0.11-0.59) Eosinophils # (Auto) 0.01 K/uL (0-0.5) Basophils # (Auto) 0.00 K/uL (0-0.2) RDW Standard Deviation 49.5 fL (36.4-46.3) RDW Coefficient of Variation 13.9 % (11.5-14.5) Immature Granulocyte % (Auto) 0.2 % Immature Granulocyte # (Auto) 0.02 K/uL (0.00-0.02) D-Dimer 580 ug/L FEU (0-500) Anion Gap 9.0 mmol/L (3-11) Est Creatinine Clear Calc Drug Dose 69.3 ml/min Estimated GFR () 113.9 Estimated GFR (Non- 98.3 BUN/Creatinine Ratio 34.1 (10-20) Calcium Level 8.9 mg/dl (8.5-10.1) Total Bilirubin 0.6 mg/dl (0.2-1) Aspartate Amino Transf (AST/SGOT) 28 U/L (15-37) Alanine Aminotransferase (ALT/SGPT) 27 U/L (12-78) Alkaline Phosphatase 77 U/L (45-117) Troponin I < 0.015 ng/ml (0-0.045) Total Protein 6.6 gm/dl (6.4-8.2) Albumin 3.6 gm/dl (3.4-5.0) Globulin 3.0 gm/dl (2.5-4.0) Albumin/Globulin Ratio 1.2 (0.9-2) Bedside Lactic Acid Venous 1.60 mmol/L (0.90-1.70) Labs reviewed by ED physician. ECG Indication: SOB/dyspnea Rate (beats per minute): 85 Rhythm: other (narrow complex) Findings: nonspecific-ST abn, other (normal axis) ED Course 1558: Past medical records reviewed. The patient was evaluated in room B6. A complete history and physical examination was performed. 1600: Duoneb 6 ml INH. 1818: Upon reexamination the patient is hemodynamically stable. I discussed results and treatment plan with the patient. He verbalizes agreement and understanding. The patient is ready for discharge. Medical Decision Differential diagnoses include but are not limited to; COPD, heart disease. 60-year-old with history of long-standing COPD on 2 L home O2 presents into the emergency department via medics after he felt short of breath at home. On my evaluation he is quite pleasant in no acute distress and has no complaints after receiving both site measure IV and morphine IV. He states he does not get albuterol or other nebulizer treatments for his COPD as they don't help him. This was confirmed on additional history and repeat questioning. He states side Medrol and especially the morphine work well for his COPD. He was ambulated in the emergency department with a normal pulse ox on his standard 2 L nasal cannula. X-ray of the chest was normal and labs were unremarkable other than elevated d-dimer. Patient felt quite comfortable on reexamination at 6 PM and preferred to go home. I do not believe the d-dimer as well as in the clinical context today. There is no warmth nor erythema nor edema of the lower extremities and patient has no pleuritic chest pain. Patient has follow- up with his doctor in several days and is already on a steroid taper which started yesterday. He was initially on 60 mg daily and just started 50 mg daily yesterday. After some conversation we decided to extend the 60 mg per day dosing and then continue the taper as prescribed. Therefore, prednisone was written and patient understands to follow-up with his doctor return for any worsening worrisome symptoms. Impression Primary Impression: COPD exacerbation Scribe Attestation The scribe's documentation has been prepared under my direction and personally reviewed by me in its entirety. I confirm that the note above accurately reflects all work, treatment, procedures, and medical decision making performed by me. Departure Information Dispostion Home / Self-Care Prescriptions Prednisone (Prednisone) 20 Mg Tab 60 MG PO DAILY for 4 Days, #12 TAB Prov: Alban Shafer MD 11/16/16 Referrals Hugo Ramos M.D. (PCP) Forms HOME CARE DOCUMENTATION FORM, IMPORTANT VISIT INFORMATION Patient Instructions Asthma - [facility], COPD - [facility], Croup - [facility], [facility]
[2016-11-16 16:32] LABS: ALT/SGPT 27 U/L (12-78); BLOOD UREA NITROGEN 26 mg/dl (7-18); BUN/CREATININE RATIO 34.1 (10-20); CALCIUM 8.9 mg/dl (8.5-10.1); CARBON DIOXIDE 35 mmol/L (21-32); CHLORIDE 100 mmol/L (98-107); CREATININE 0.75 mg/dl (0.60-1.40); GLUCOSE 110 mg/dl (70-99); POTASSIUM 4.6 mmol/L (3.5-5.1); SODIUM 144 mmol/L (136-145)
[2016-11-16 16:36] LABS: ALB/GLOB RATIO 1.2 (0.9-2); ALKALINE PHOSPHATASE 77 U/L (45-117); AST/SGOT 28 U/L (15-37)
[2016-11-16] MEDS ORDERED: PRED20TA PO (18:17)
[2016-11-16 18:32] VITALS: BP 134/86; PULSE 82; O2SAT 99
== END 2016-11-16 18:56 | disposition home or self-care (01) ==
LOC: EDBD 13:40 → C.EDB 13:43
DX: J44.1 Chronic obstructive pulmonary disease with (acute) exacerbation (principal); F41.9 Anxiety disorder, unspecified; I25.10 Atherosclerotic heart disease of native coronary artery without angina pectoris; E78.5 Hyperlipidemia, unspecified; I10 Essential (primary) hypertension; E03.9 Hypothyroidism, unspecified; Z87.01 Personal history of pneumonia (recurrent); Z95.5 Presence of coronary angioplasty implant and graft; Z87.891 Personal history of nicotine dependence; Z79.899 Other long term (current) drug therapy; Z99.81 Dependence on supplemental oxygen

== ENCOUNTER 2016-12-31 16:46 | Emergency (ER) | payer BC ==
[~2016-12-31] VITALS: Ht 170.2 cm; Wt 47.6 kg
[~2016-12-31 16:46] MED LIST changes: -PRED10TA PO
[2016-12-31 16:50] VITALS: TEMP 36.8; Ht 170.2 cm; Wt 47.6 kg
[2016-12-31 17:01] VITALS: O2SAT 94
[2016-12-31] MEDS ORDERED: GLYC1AER INH (17:22)
[2016-12-31 17:31] LABS: BASO % 0.1 %; BASO ABS # 0.01 K/uL (0-0.2); COMPLETE YES; EOS % 0.1 %; HEMATOCRIT 42.2 % (42-52); IG% 0.9 %; LYMPH % 4.5 %; MEAN CELL VOLUME 93.2 fL (80-100); MEAN CORPUSCULAR HEMOGLOBIN 30.2 pg (25-34); MEAN CORPUSCULAR HGB CONC 32.5 g/dl (32-36); MEAN PLATELET VOLUME 9.3 fL (7.4-10.4); MONO % 3.7 %; NEUT % 90.7 %; PLATELET COUNT 171 K/uL (130-400); RED BLOOD COUNT 4.53 M/uL (4.7-6.1); WHITE BLOOD COUNT 15.66 K/uL (4.8-10.8)
--- NOTE | 2016-12-31 17:46 | EMERGENCY ROOM VISIT NOTE ---
History Report prepared by Scribe: Yoli Malave Under the Supervision of: Dr. Marli Rizvi D.O. First contact with patient: 16:51 Chief Complaint: SHORTNESS OF BREATH Stated Complaint: SOB Nursing Triage Summary: Patient arrived to [facility] via ALS from a car lot. Patient states "I got motivated today and did too much. I was at the car lot to buy a vehicle and got really short of breath." EMS report an oxygen saturation of 73% on 3L via NC upon their arrival. Patient received Solumedrol 125mg IV; Morphine 4mg IV and Zofran 4mg IV. Patient states "I cannot take nebulizers because they make me go down and I end up on a ventilator." Patient denies any recent illnesses. History of Present Illness The patient is a 61 year old male who presents to the Emergency Room with complaints of worsening shortness of breath for the past 2 hours. He states he went to buy a car this afternoon and became very short of breath while there. He does have a history of COPD and anxiety and was seen here in the ED recently for the breathing problems. His Oxygen saturation was 73% on 3 Liters via nasal canula upon EMS arrival. He was given Solu-Medrol and Morphine in the field, which have provided relief. He denies any recent changes in medications. He denies any recent illness or cough or cold symptoms. He also denies any chest pain or abdominal pain. 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 A total of 10 systems reviewed and were otherwise negative. Past Medical & Surgical Medical Problems: (1) Acute respiratory failure (2) Anxiety (3) ARDS (adult respiratory distress syndrome) (4) CAD (coronary artery disease) (5) Chest pain (6) Constipation (7) COPD (chronic obstructive pulmonary disease) (8) COPD exacerbation (9) COPD exacerbation (10) COPD exacerbation (11) COPD exacerbation (12) COPD exacerbation (13) COPD exacerbation (14) Coronary Atherosclerosis Of [place] Coronary Vessel (15) Dyslipidemia (16) Emphysema (17) Hypertension Nos (18) Hypothyroidism (19) Pneumonia (20) Respiratory distress (21) Respiratory failure (22) Severe persistent cold-induced asthma with acute exacerbation (23) Supplemental Oxygen (24) Very severe chronic obstructive pulmonary disease Surgical Problems: (1) History of tonsillectomy (2) Percutaneous Translum Coron Angioplasty Status (3) Stented coronary artery Family History Not obtainable due to adoption Social History Smoking Status: Former Smoker Alcohol Use: none Drug Use: none Marital Status: Housing Status: lives with family Occupation Status: retired Current/Historical Medications Scheduled Atorvastatin (Atorvastatin Calcium), 40 MG PO HS Carvedilol (Carvedilol), 6.25 MG PO BID Clopidogrel Bisulfate (Clopidogrel), 75 MG PO DAILY Glycopyrrolate-Formoterol Fuma (Bevespi Aerosphere 9-4.8 Mcg/Act), 2 PUFF INH BID Oxygen (Oxygen), 2-3 LITER NA CONTINOUS Pantoprazole Sodium (Protonix), 40 MG PO DAILY Theophylline (Williams-24), 400 MG PO DAILY Tiotropium [place] (Spiriva Handihaler), 1 PUFF INH DAILY Scheduled PRN Albuterol Hfa (Ventolin Hfa), 2 PUFFS INH QID PRN for Wheezing Hyoscyamine Sulfate (Hyoscyamine Sulfate), 0.125 MG PO Q6H PRN for Abdominal Pain Morphine Sulfate Ir (Morphine Sulfate Ir), 15-30 MG PO Q4H PRN for Pain Nitroglycerin (Nitrostat), 0.4 MG UT UD PRN for Chest Pain Temazepam (Temazepam), 15 MG PO HS PRN for Sleep Allergies Coded Allergies: Doxycycline (Unverified Allergy, Intermediate, TURNS RED, 11/16/16) Albuterol (Verified Allergy, Mild, hypoxia, 11/16/16) Azithromycin (Verified Allergy, Mild, hypoxia, 11/16/16) Ipratropium (Verified Allergy, Mild, hypoxia, 11/16/16) Levofloxacin (Verified Allergy, Mild, hypoxia, 11/16/16) Physical Exam Vital Signs Date Time Temp Pulse Resp B/P Pulse Ox O2 Delivery O2 Flow Rate FiO2 12/31/16 18:50 96 20 120/91 98 Nasal Cannula 3.0 12/31/16 17:42 100 24 148/93 97 Nasal Cannula 4.0 12/31/16 17:06 103 12/31/16 17:01 94 Nasal Cannula 4.0 12/31/16 16:50 94 Nasal Cannula 4.0 12/31/16 16:50 36.8 105 28 146/104 94 Nasal Cannula 4.0 12/31/16 16:50 73 Nasal Cannula 2.0 Physical Exam General: The patient appears tachypneic with pursed lip breathing. HEENT: Head - normocephalic and atraumatic Pupils are equal, round, and reactive to light. Extraocular eye muscles are intact, and sclera are anicteric. Nose - moist nasal mucosa without discharge. Mouth - moist buccal mucosa. Oropharynx is nonerythematous and there is no tonsillar exudate or edema noted. Neck: Supple; no JVD, nuchal rigidity, cervical lymphadenopathy. Heart: Tachycardic heart rate, regular rhythm. There is a normal S1 and S2 with no murmurs, clicks, or gallops appreciated. Lungs: Very diminished breath sounds in all lung jacome, no wheezes, rales, or rhonchi. Abdomen: Soft, completely nontender, nondistended, with good bowel sounds. There are no palpable pulsatile masses or hepatosplenomegaly. There is no guarding, rigidity, or rebound noted. Extremities: No evidence of cyanosis, clubbing, or edema. There are easily palpable peripheral pulses. Skin: warm and dry with good turgor and no rashes. Medical Decision & Procedures ER Provider Diagnostic Interpretation: This X-Ray was reviewed and interpreted by myself and the radiologist. CHEST 2 VIEWS ROUTINE IMPRESSION: 1. No acute cardiopulmonary findings. 2. Severe emphysema. Electronically signed by: Choco Oden M.D. 12/31/2016 5:47 PM Laboratory Results 12/31/16 17:16 Red Blood Count 4.53, Mean Corpuscular Volume 93.2, Mean Corpuscular Hemoglobin 30.2, Mean Corpuscular Hemoglobin Concent 32.5, Mean Platelet Volume 9.3, Neutrophils (%) (Auto) 90.7, Lymphocytes (%) (Auto) 4.5, Monocytes (%) (Auto) 3.7, Eosinophils (%) (Auto) 0.1, Basophils (%) (Auto) 0.1, Neutrophils # (Auto) 14.21, Lymphocytes # (Auto) 0.70, Monocytes # (Auto) 0.58, Eosinophils # (Auto) 0.02, Basophils # (Auto) 0.01 12/31/16 17:16 Test 12/31/16 17:16 White Blood Count 15.66 K/uL (4.8-10.8) Red Blood Count 4.53 M/uL (4.7-6.1) Hemoglobin 13.7 g/dL (14.0-18.0) Hematocrit 42.2 % (42-52) Mean Corpuscular Volume 93.2 fL (80-100) Mean Corpuscular Hemoglobin 30.2 pg (25-34) Mean Corpuscular Hemoglobin Concent 32.5 g/dl (32-36) Platelet Count 171 K/uL (130-400) Mean Platelet Volume 9.3 fL (7.4-10.4) Neutrophils (%) (Auto) 90.7 % Lymphocytes (%) (Auto) 4.5 % Monocytes (%) (Auto) 3.7 % Eosinophils (%) (Auto) 0.1 % Basophils (%) (Auto) 0.1 % Neutrophils # (Auto) 14.21 K/uL (1.4-6.5) Lymphocytes # (Auto) 0.70 K/uL (1.2-3.4) Monocytes # (Auto) 0.58 K/uL (0.11-0.59) Eosinophils # (Auto) 0.02 K/uL (0-0.5) Basophils # (Auto) 0.01 K/uL (0-0.2) RDW Standard Deviation 47.0 fL (36.4-46.3) RDW Coefficient of Variation 13.8 % (11.5-14.5) Immature Granulocyte % (Auto) 0.9 % Immature Granulocyte # (Auto) 0.14 K/uL (0.00-0.02) Anion Gap 6.0 mmol/L (3-11) Est Creatinine Clear Calc Drug Dose 70.7 ml/min Estimated GFR () 115.1 Estimated GFR (Non- 99.3 BUN/Creatinine Ratio 25.7 (10-20) Calcium Level 8.9 mg/dl (8.5-10.1) Total Creatine Kinase U/L (39-308) Creatine Kinase MB 2.9 ng/ml (0.5-3.6) Creatine Kinase MB Ratio (0-3.0) Troponin I 0.024 ng/ml (0-0.045) Laboratory results per my review. Medications Administered Medications (Trade) Dose Ordered Sig/Mau Route Start Time Stop Time Status Last Admin Dose Admin Morphine Sulfate (MoRPHine SULFATE INJ) 2 mg STK-MED ONCE .ROUTE 12/31/16 18:50 12/31/16 18:53 DC 12/31/16 18:56 2 MG Procedure Morphine IV. ECG Indication: SOB/dyspnea Rate (beats per minute): 100 Rhythm: normal sinus Findings: no acute ischemic change, no ectopy ED Course 1715: I reviewed a note from the patients primary care physician who recommends no humidified Oxygen and a tapering dose of Prednisone. 1738: Past medical records reviewed. The patient was evaluated in room C9. A complete history and physical exam was performed. Laboratory studies were drawn as above. A 12-lead EKG was obtained as described above. The patient had a chest x-ray as described above. 184: I reevaluated the patient. He is requesting more pain medication before he goes home. 1850: Morphine Sulfate 2 mg IV. Medical Decision The patient is a 61 year old male who presents to the ED with shortness of breath. The differential diagnoses include bronchitis, pneumonia, COPD exacerbation and CHF. Lab results show WBC is 15.6, Hemoglobin is 13.7, BUN is 19, Creatinine is 0.7, Glucose is 142, Cardiac enzymes are negative. This is a 61-year-old male patient with a history of COPD. The patient believes he exerted himself today which triggered a COPD exacerbation. The patient was unable to get his saturations up at home. He has significant relief of his symptoms after receiving IV morphine and site Medrol by EMS. This is the typical treatment for him. The patient has no signs of pneumonia. He does not have fever. His O2 sat saturations remained stable while here in the ER. He will be discharged home on a tapering dose of prednisone. Impression Primary Impression: COPD exacerbation Scribe Attestation The scribe's documentation has been prepared under my direction and personally reviewed by me in its entirety. I confirm that the note above accurately reflects all work, treatment, procedures, and medical decision making performed by me. Departure Information Dispostion Home / Self-Care Referrals Hugo Ramos M.D. (PCP) Patient Instructions ED COPD Flare, My [facility] Additional Instructions Take Prednisone as directed starting tomorrow. 4 tabs. a day for 4 days 3 tabs. a day for 4 days 2 tabs. a day for 4 days 1 tab. a day for 4 days Follow up with Dr. Ramos when steroids finished. Return to the ER if symptoms worsen.
--- NOTE | 2016-12-31 17:49 | DIAGNOSTIC IMAGING REPORT ---
CHEST 2 VIEWS ROUTINE CLINICAL HISTORY: COPD. Shortness of breath. COMPARISON STUDY: Chest CT May 06, 2016 and chest radiograph November 16, 2016. FINDINGS: Severe emphysema is noted. There is no pneumothorax or pleural effusion. There is no evidence of pulmonary edema. No consolidation is identified. Cardiac size is normal. Mediastinal contours are normal. Linear right midlung opacities may reflect atelectasis. IMPRESSION: 1. No acute cardiopulmonary findings. 2. Severe emphysema. Electronically signed by: Choco Oden M.D. 12/31/2016 5:47 PM Dictated Date/Time: 12/31/2016 5:45 PM
[2016-12-31 18:09] LABS: BLOOD UREA NITROGEN 19 mg/dl (7-18); BUN/CREATININE RATIO 25.7 (10-20); CALCIUM 8.9 mg/dl (8.5-10.1); CARBON DIOXIDE 34 mmol/L (21-32); CHLORIDE 100 mmol/L (98-107); CREATININE 0.72 mg/dl (0.60-1.40); GLUCOSE 142 mg/dl (70-99); SODIUM 140 mmol/L (136-145)
[2016-12-31] MEDS ORDERED: MoRPHine SULFATE 4 MG/ML 1 ML CARP\\VIAL IV STA (18:42)
[2016-12-31 18:50] VITALS: BP 120/91; PULSE 96; O2SAT 98
[2016-12-31] MEDS ORDERED: MoRPHine SULFATE 2 MG/ML CARP ONE (18:50)
== END 2016-12-31 19:10 | disposition home or self-care (01) ==
LOC: EDBD 16:46 → C.EDC 16:47
DX: J44.1 Chronic obstructive pulmonary disease with (acute) exacerbation (principal); F41.9 Anxiety disorder, unspecified; J80 Acute respiratory distress syndrome; I25.10 Atherosclerotic heart disease of native coronary artery without angina pectoris; E78.5 Hyperlipidemia, unspecified; I10 Essential (primary) hypertension; E03.9 Hypothyroidism, unspecified; Z87.891 Personal history of nicotine dependence; Z99.81 Dependence on supplemental oxygen; Z79.899 Other long term (current) drug therapy

== ENCOUNTER 2017-01-23 23:21 | Emergency (ER) | payer BC ==
[~2017-01-23] VITALS: Ht 170.2 cm; Wt 45.2 kg
[~2017-01-23 23:21] MED LIST changes: +GLYC1AER INH; -PANT20TA PO; +PANT20TA2 PO; -SYMIN160 INH
[2017-01-23 23:22] VITALS: TEMP 36.5; Ht 170.2 cm; Wt 45.2 kg
[2017-01-23] MEDS ORDERED: MAGNESIUM SULFATE 1GM / D5W 1 GM BAG IV STA ×2 (23:29→23:32)
--- NOTE | 2017-01-23 23:50 | EMERGENCY ROOM VISIT NOTE ---
History Report prepared by Radhika: Aki Chau Under the Supervision of: Dr. Harman Watson M.D. First contact with patient: 23:22 Chief Complaint: RESPIRATORY PROBLEMS Stated Complaint: RESPIRATORY DIFFICULTY History of Present Illness The patient is a 61 year old male with a history of COPD who presents to the Emergency Room with complaints of improving shortness of breath that started tonight. The patient was given Solu-Medrol and two rounds of Morphine in the ambulance en route to the ED, which did offer some relief. He denies chest pain. This episode feels like past episodes of COPD exacerbation that have brought him to the ED. The patient states that his toes are not normally cyanotic. He denies any recent travel or sick contacts. Source of History: patient Onset: tonight Position: other (respiratory) Quality: other (shortness of breath) Timing: other (improving) Modifying Factors (Relieving): narcotics, other (Solu-Medrol) Associated Symptoms: No chest pain Review of Systems See HPI for pertinent positives & negatives. A total of 10 systems reviewed and were otherwise negative. Past Medical & Surgical Medical Problems: (1) Acute respiratory failure (2) Anxiety (3) ARDS (adult respiratory distress syndrome) (4) CAD (coronary artery disease) (5) Chest pain (6) Constipation (7) COPD (chronic obstructive pulmonary disease) (8) COPD exacerbation (9) COPD exacerbation (10) COPD exacerbation (11) COPD exacerbation (12) COPD exacerbation (13) COPD exacerbation (14) Coronary Atherosclerosis Of [place] Coronary Vessel (15) Dyslipidemia (16) Emphysema (17) Hypertension Nos (18) Hypothyroidism (19) Pneumonia (20) Respiratory distress (21) Respiratory failure (22) Severe persistent cold-induced asthma with acute exacerbation (23) Supplemental Oxygen (24) Very severe chronic obstructive pulmonary disease Surgical Problems: (1) History of tonsillectomy (2) Percutaneous Translum Coron Angioplasty Status (3) Stented coronary artery Family History Not obtainable due to adoption Social History Smoking Status: Former Smoker Alcohol Use: none Drug Use: none Marital Status: Housing Status: lives with family Occupation Status: retired Current/Historical Medications Scheduled Atorvastatin (Atorvastatin Calcium), 40 MG PO HS Carvedilol (Carvedilol), 6.25 MG PO BID Clopidogrel Bisulfate (Clopidogrel), 75 MG PO DAILY Glycopyrrolate-Formoterol Fuma (Bevespi Aerosphere 9-4.8 Mcg/Act), 2 PUFF INH BID Oxygen (Oxygen), 2-3 LITER NA CONTINOUS Pantoprazole Sodium (Protonix), 40 MG PO DAILY Prednisone (Prednisone), 10 MG PO DIRECTED Theophylline (Williams-24), 400 MG PO DAILY Tiotropium [place] (Spiriva Handihaler), 1 PUFF INH DAILY Scheduled PRN Albuterol Hfa (Ventolin Hfa), 2 PUFFS INH QID PRN for Wheezing Hyoscyamine Sulfate (Hyoscyamine Sulfate), 0.125 MG PO Q6H PRN for Abdominal Pain Morphine Sulfate Ir (Morphine Sulfate Ir), 15-30 MG PO Q4H PRN for Pain Nitroglycerin (Nitrostat), 0.4 MG UT UD PRN for Chest Pain Temazepam (Temazepam), 15 MG PO HS PRN for Sleep Allergies Coded Allergies: Doxycycline (Unverified Allergy, Intermediate, TURNS RED, 11/16/16) Albuterol (Verified Allergy, Mild, hypoxia, 11/16/16) Azithromycin (Verified Allergy, Mild, hypoxia, 11/16/16) Ipratropium (Verified Allergy, Mild, hypoxia, 11/16/16) Levofloxacin (Verified Allergy, Mild, hypoxia, 11/16/16) Physical Exam Vital Signs Date Time Temp Pulse Resp B/P Pulse Ox O2 Delivery O2 Flow Rate FiO2 01/24/17 01:43 76 139/88 95 01/24/17 00:34 88 20 128/79 98 Nasal Cannula 3.0 01/23/17 23:45 90 01/23/17 23:22 95 Nasal Cannula 01/23/17 23:22 36.5 93 26 157/122 95 Nasal Cannula 4.0 Physical Exam GENERAL: Patient is ill appearing and in moderate distress. HEENT: No acute trauma, normocephalic atraumatic, mucous membranes moist, no nasal congestion, no scleral icterus. NECK: No stridor, no adenopathy, no meningismus, trachea is midline. LUNGS: Dyspneic with pursed lip breathing. Very tight lung sounds throughout with faint wheezing appreciated. HEART: Regular rate and rhythm. No murmurs, rubs, gallops appreciated. ABDOMEN: Soft, nontender, bowel sounds positive, no masses appreciated, no peritonitis. BACK: No midline tenderness, no CVA tenderness EXTREMITIES: Normal motion all extremities. Mottling of the lower legs bilaterally. NEUROLOGIC: Alert and oriented, no acute motor or sensory deficits, no focal weakness, cranial nerves grossly intact. SKIN: No rash, no jaundice, no diaphoresis. Medical Decision & Procedures ER Provider Diagnostic Interpretation: X ray results are stated below per my interpretation: Chest: 1 view: Severe emphysematous changes, no infiltrate or effusion, similar to previous CXR. Laboratory Results 01/23/17 23:52 Red Blood Count 4.56, Mean Corpuscular Volume 94.5, Mean Corpuscular Hemoglobin 30.9, Mean Corpuscular Hemoglobin Concent 32.7, Mean Platelet Volume 9.3, Neutrophils (%) (Auto) 83.5, Lymphocytes (%) (Auto) 9.8, Monocytes (%) (Auto) 4.9, Eosinophils (%) (Auto) 1.3, Basophils (%) (Auto) 0.1, Neutrophils # (Auto) 7.65, Lymphocytes # (Auto) 0.90, Monocytes # (Auto) 0.45, Eosinophils # (Auto) 0.12, Basophils # (Auto) 0.01 01/23/17 23:52 Test 01/23/17 23:52 01/23/17 23:54 White Blood Count 9.17 K/uL (4.8-10.8) Red Blood Count 4.56 M/uL (4.7-6.1) Hemoglobin 14.1 g/dL (14.0-18.0) Hematocrit 43.1 % (42-52) Mean Corpuscular Volume 94.5 fL (80-100) Mean Corpuscular Hemoglobin 30.9 pg (25-34) Mean Corpuscular Hemoglobin Concent 32.7 g/dl (32-36) Platelet Count 181 K/uL (130-400) Mean Platelet Volume 9.3 fL (7.4-10.4) Neutrophils (%) (Auto) 83.5 % Lymphocytes (%) (Auto) 9.8 % Monocytes (%) (Auto) 4.9 % Eosinophils (%) (Auto) 1.3 % Basophils (%) (Auto) 0.1 % Neutrophils # (Auto) 7.65 K/uL (1.4-6.5) Lymphocytes # (Auto) 0.90 K/uL (1.2-3.4) Monocytes # (Auto) 0.45 K/uL (0.11-0.59) Eosinophils # (Auto) 0.12 K/uL (0-0.5) Basophils # (Auto) 0.01 K/uL (0-0.2) RDW Standard Deviation 48.6 fL (36.4-46.3) RDW Coefficient of Variation 14.1 % (11.5-14.5) Immature Granulocyte % (Auto) 0.4 % Immature Granulocyte # (Auto) 0.04 K/uL (0.00-0.02) Venous Blood pH 7.36 (7.36-7.41) Venous Blood Partial Pressure CO2 72 mmHg (38.0-50.0) Venous Blood Partial Pressure O2 25 mmHg Venous Blood HCO3 40 mmol/L Venous Blood Oxygen Saturation < 60.0 % Venous Blood Base Excess 11.1 mmol/L Anion Gap 4.0 mmol/L (3-11) Est Creatinine Clear Calc Drug Dose 61.2 ml/min Estimated GFR () 110.8 Estimated GFR (Non- 95.6 BUN/Creatinine Ratio 31.1 (10-20) Calcium Level 9.0 mg/dl (8.5-10.1) Magnesium Level 2.6 mg/dl (1.8-2.4) Total Creatine Kinase 36 U/L (39-308) Creatine Kinase MB 1.7 ng/ml (0.5-3.6) Creatine Kinase MB Ratio 4.7 (0-3.0) Troponin I < 0.015 ng/ml (0-0.045) Bedside Lactic Acid Venous 0.95 mmol/L (0.90-1.70) Laboratory results as reviewed by me. Medications Administered Medications (Trade) Dose Ordered Sig/Mau Route Start Time Stop Time Status Last Admin Dose Admin Magnesium Sulfate (Magnesium Sulfate) 1 gm NOW STAT IV 01/23/17 23:32 01/23/17 23:33 DC 01/23/17 23:32 1 GM Morphine Sulfate (MoRPHine SULFATE INJ) 3 mg NOW STAT IV 01/24/17 01:34 01/24/17 01:35 DC 01/24/17 01:39 3 MG ECG Indication: SOB/dyspnea Rate (beats per minute): 89 Rhythm: normal sinus Findings: no acute ischemic change, no ectopy, other (very poor baseline) ED Course 2329: Magnesium Sulfate 2 gm IV. 2330: The patient was evaluated in room A11A. A complete history and physical exam was performed. 2332: Magnesium Sulfate 1 gm IV. 2355: The patient is feeling much improved. 0040: The patient is completely back to baseline. He does not want to be admitted currently. He would like to be monitored a little longer to see how he feels. 0130: The patient would like to go home. He asked for something for pain before being discharged. 0134: Morphine Sulfate 3 mg IV. Medical Decision Differential: Infectious, Reactive Airway Disease, Pneumonia, Pneumothorax, COPD , CHF, ACS, Pulmonary Embolism, MSK, GI, Dissection, amongst other etiologies entertained. 61 yr old quite unwell male with chronic lung disease who is unable to get on transplant list secondary to cachexia. Frequent bouts of exacerbations and often on steroid tapers which he just finished a few days ago. Arrives after another flare up resulting in severe hypoxia. Resolved with Morphine, Solu- medrol and then Mag here. He is feeling back to baseline. He is not willing to stay in hospital. Given history I do not feel this is PE, ACS, dissection. He understands he is at high risk of return to ED if he goes home. Aware he should call 911 if worsening or other severe concerns. Stressed calling PCP in am to discuss if they would want him on Pred Rx I gave or whether other approach. Impression Primary Impression: Acute exacerbation of chronic obstructive pulmonary disease (COPD) Scribe Attestation The scribe's documentation has been prepared under my direction and personally reviewed by me in its entirety. I confirm that the note above accurately reflects all work, treatment, procedures, and medical decision making performed by me. Departure Information Dispostion Home / Self-Care Prescriptions Prednisone (Prednisone) 10 Mg Tab 10 MG PO DIRECTED, #60 TAB Take 6 tabs for 3 days, then 5 tabs for 3 days, then 4 tabs for 3 days, then 3 tabs for 3 days, then 2 tabs for 3 days, 1 tab daily. Prov: Harman Watson M.D. 01/24/17 Referrals Hugo Ramos M.D. (PCP) Forms HOME CARE DOCUMENTATION FORM, IMPORTANT VISIT INFORMATION, WORK / SCHOOL INSTRUCTIONS Patient Instructions COPD - [facility], My [facility]
[2017-01-24 00:07] LABS: BASO % 0.1 %; BASO ABS # 0.01 K/uL (0-0.2); COMPLETE YES; EOS % 1.3 %; HEMATOCRIT 43.1 % (42-52); IG% 0.4 %; LYMPH % 9.8 %; MEAN CELL VOLUME 94.5 fL (80-100); MEAN CORPUSCULAR HEMOGLOBIN 30.9 pg (25-34); MEAN CORPUSCULAR HGB CONC 32.7 g/dl (32-36); MEAN PLATELET VOLUME 9.3 fL (7.4-10.4); MONO % 4.9 %; NEUT % 83.5 %; PLATELET COUNT 181 K/uL (130-400); RED BLOOD COUNT 4.56 M/uL (4.7-6.1); WHITE BLOOD COUNT 9.17 K/uL (4.8-10.8)
[2017-01-24 00:09] LABS: VEN BLOOD GAS BASE EXCESS 11.1 mmol/L; VENOUS BLOOD GAS PCO2 72 mmHg (38.0-50.0); VENOUS BLOOD GAS PO2 25 mmHg
[2017-01-24 00:13] LABS: VEN BLD GAS O2 SATURATION < 60.0 %
[2017-01-24 00:19] LABS: BLOOD UREA NITROGEN 25 mg/dl (7-18); BUN/CREATININE RATIO 31.1 (10-20); CARBON DIOXIDE 38 mmol/L (21-32); CHLORIDE 100 mmol/L (98-107); CREATININE 0.79 mg/dl (0.60-1.40); GLUCOSE 122 mg/dl (70-99); MAGNESIUM 2.6 mg/dl (1.8-2.4); POTASSIUM 4.1 mmol/L (3.5-5.1); SODIUM 142 mmol/L (136-145)
[2017-01-24 00:24] LABS: CKMB/CK RATIO 4.7 (0-3.0)
[2017-01-24] MEDS ORDERED: PRED10TA PO (01:12)
[2017-01-24] MEDS ORDERED: MoRPHine SULFATE 4 MG/ML 1 ML CARP\\VIAL IV STA (01:34)
[2017-01-24 01:43] VITALS: BP 139/88; PULSE 76; O2SAT 95
--- NOTE | 2017-01-24 08:06 | DIAGNOSTIC IMAGING REPORT ---
CHEST ONE VIEW PORTABLE CLINICAL HISTORY: [facility] dyspnea COMPARISON STUDY: 12/31/2016 FINDINGS: Emphysematous change. No focal infiltrate. Mild scarring of both diaphragms. No evidence for cardiac enlargement. IMPRESSION: Emphysematous change. No acute process. Electronically signed by: Domingo Robertson M.D. 01/24/2017 8:04 AM Dictated Date/Time: 01/24/2017 8:04 AM
== END 2017-01-24 01:48 | disposition home or self-care (01) ==
LOC: EDBD 23:21 → C.EDA 23:23
DX: J44.9 Chronic obstructive pulmonary disease, unspecified (principal); J80 Acute respiratory distress syndrome; F41.9 Anxiety disorder, unspecified; I25.10 Atherosclerotic heart disease of native coronary artery without angina pectoris; E78.5 Hyperlipidemia, unspecified; J43.9 Emphysema, unspecified; I10 Essential (primary) hypertension; E03.9 Hypothyroidism, unspecified; Z87.891 Personal history of nicotine dependence; Z99.81 Dependence on supplemental oxygen; Z79.899 Other long term (current) drug therapy

== ENCOUNTER 2017-02-05 11:07 | Emergency (ER) | payer BC ==
[~2017-02-05] VITALS: Ht 170.2 cm; Wt 46.1 kg
[~2017-02-05 11:07] MED LIST changes: +PRED10TA PO
[2017-02-05 11:17] VITALS: Ht 170.2 cm; Wt 46.1 kg
[2017-02-05 11:25] VITALS: O2SAT 100
[2017-02-05] MEDS ORDERED: PRED20TA PO (11:40)
[2017-02-05] MEDS ORDERED: MoRPHine SULFATE 4 MG/ML 1 ML CARP\\VIAL IV STA ×2 (11:44→14:25)
[2017-02-05] MEDS ORDERED: MoRPHine SULFATE 4 MG/ML 1 ML CARP\\VIAL IV PRN (11:45)
--- NOTE | 2017-02-05 11:47 | EMERGENCY ROOM VISIT NOTE ---
History Report prepared by Radhika: Marco A Madsen Under the Supervision of: Dr. Harman Watson M.D. First contact with patient: 11:39 Chief Complaint: RESPIRATORY DISTRESS Stated Complaint: SHORTNESS OF BREATH History of Present Illness The patient is a 61 year old male who presents to the Emergency Room via EMS with complaints of worsening respiratory problems that started at 0130 this morning. He says he currently feels short of breath, but is less short of breath than around an hour ago. Per the patient's , the patient has been here twice in the past month for similar symptoms. The patient is currently on a long steroid taper. He did take Morphine at home around 0700 and 0930 this morning. The patient was given Solu-Medrol by EMS. He does note that a few days ago, he leaned over and started to get right-sided rib pain. He does not have that pain currently. Source of History: patient, spouse/significant other Onset: 0130 this morning Position: other (global - respiratory problems) Timing: worsening Modifying Factors (Relieving): other (Solu-Medrol) Associated Symptoms: + SOB Note: Associated symptoms: Started to get right-sided rib pain a few days ago after bending over - may not be related. Review of Systems See HPI for pertinent positives & negatives. A total of 10 systems reviewed and were otherwise negative. Past Medical & Surgical Medical Problems: (1) Acute respiratory failure (2) Anxiety (3) ARDS (adult respiratory distress syndrome) (4) CAD (coronary artery disease) (5) Chest pain (6) Constipation (7) COPD (chronic obstructive pulmonary disease) (8) COPD exacerbation (9) COPD exacerbation (10) COPD exacerbation (11) COPD exacerbation (12) COPD exacerbation (13) COPD exacerbation (14) Coronary Atherosclerosis Of [place] Coronary Vessel (15) Dyslipidemia (16) Emphysema (17) Hypertension Nos (18) Hypothyroidism (19) Pneumonia (20) Respiratory distress (21) Respiratory failure (22) Severe persistent cold-induced asthma with acute exacerbation (23) Supplemental Oxygen (24) Very severe chronic obstructive pulmonary disease Surgical Problems: (1) History of tonsillectomy (2) Percutaneous Translum Coron Angioplasty Status (3) Stented coronary artery Family History Not obtainable due to adoption Social History Smoking Status: Former Smoker Alcohol Use: none Drug Use: none Marital Status: Housing Status: lives with family Occupation Status: retired Current/Historical Medications Scheduled Atorvastatin (Atorvastatin Calcium), 40 MG PO HS Carvedilol (Carvedilol), 6.25 MG PO BID Clopidogrel Bisulfate (Clopidogrel), 75 MG PO DAILY Glycopyrrolate-Formoterol Fuma (Bevespi Aerosphere 9-4.8 Mcg/Act), 2 PUFF INH BID Oxygen (Oxygen), 2-3 LITER NA CONTINOUS Pantoprazole Sodium (Protonix), 40 MG PO DAILY Prednisone (Prednisone), 20 MG PO DAILY Theophylline (Williams-24), 400 MG PO DAILY Tiotropium [place] (Spiriva Handihaler), 1 PUFF INH DAILY Scheduled PRN Albuterol Hfa (Ventolin Hfa), 2 PUFFS INH QID PRN for Wheezing Hyoscyamine Sulfate (Hyoscyamine Sulfate), 0.125 MG PO Q6H PRN for Abdominal Pain Morphine Sulfate Ir (Morphine Sulfate Ir), 15-30 MG PO Q4H PRN for Pain Nitroglycerin (Nitrostat), 0.4 MG UT UD PRN for Chest Pain Oxycodone Immediate Rel Tab (Roxicodone Ir), 1-2 TAB PO Q4H PRN for Shortness of Breath Temazepam (Temazepam), 15 MG PO HS PRN for Sleep Allergies Coded Allergies: Doxycycline (Unverified Allergy, Intermediate, TURNS RED, 11/16/16) Albuterol (Verified Allergy, Mild, hypoxia, 11/16/16) Azithromycin (Verified Allergy, Mild, hypoxia, 11/16/16) Ipratropium (Verified Allergy, Mild, hypoxia, 11/16/16) Levofloxacin (Verified Allergy, Mild, hypoxia, 11/16/16) Physical Exam Vital Signs Date Time Temp Pulse Resp B/P Pulse Ox O2 Delivery O2 Flow Rate FiO2 02/05/17 14:16 163/97 02/05/17 14:15 133/101 02/05/17 14:06 76 22 99 02/05/17 14:00 140/93 02/05/17 13:51 75 20 100 02/05/17 13:46 75 16 132/97 100 Nasal Cannula 2.0 02/05/17 13:30 74 20 132/90 100 Nasal Cannula 2.0 02/05/17 13:15 76 17 123/90 97 Nasal Cannula 3.0 02/05/17 13:00 78 19 130/90 98 Nasal Cannula 3.0 02/05/17 12:45 82 24 126/85 98 Nasal Cannula 02/05/17 12:30 84 24 134/85 96 Nasal Cannula 4.0 02/05/17 12:27 80 22 133/94 97 Nasal Cannula 4.0 02/05/17 12:22 80 29 89 02/05/17 12:17 133/94 02/05/17 12:07 80 27 100 02/05/17 12:00 170/90 02/05/17 11:52 80 40 87 02/05/17 11:46 165/99 02/05/17 11:37 72 32 02/05/17 11:30 138/100 02/05/17 11:26 154/97 02/05/17 11:26 100 Nasal Cannula 4.0 02/05/17 11:25 100 Nasal Cannula 4.0 02/05/17 11:22 79 31 96 02/05/17 11:17 100 Nasal Cannula 4.0 02/05/17 11:17 78 36 181/106 100 Nasal Cannula 4.0 02/05/17 11:13 181/106 Physical Exam GENERAL: Patient is chronically unwell appearing, cachectic. HEENT: No acute trauma, normocephalic atraumatic, mucous membranes moist, no nasal congestion, no scleral icterus. NECK: No stridor, no adenopathy, no meningismus, trachea is midline. LUNGS: Dyspneic, minimal air movement, no wheezing appreciated. Mild tenderness over right lower ribs. HEART: Regular rate and rhythm. No murmurs, rubs, gallops appreciated. ABDOMEN: Soft, nontender, bowel sounds positive, no masses appreciated, no peritonitis. BACK: No midline tenderness, no CVA tenderness EXTREMITIES: Normal motion all extremities, no cyanosis, no edema. NEUROLOGIC: Alert and oriented, no acute motor or sensory deficits, no focal weakness, cranial nerves grossly intact. SKIN: No rash, no jaundice, no diaphoresis. Medical Decision & Procedures ER Provider Diagnostic Interpretation: X ray results are stated below per my interpretation and the radiologist's interpretation. CHEST ONE VIEW PORTABLE CLINICAL HISTORY: Shortness of breath COMPARISON STUDY: 01/23/2017 FINDINGS: The chest has an emphysematous configuration. There is no failure. There is no focal pulmonary consolidation. There are no pleural effusions.[ IMPRESSION: Emphysema. No acute findings. Electronically signed by: Remi Ly M.D. 02/05/2017 12:25 PM Dictated Date/Time: 02/05/2017 12:25 PM Medications Administered Medications (Trade) Dose Ordered Sig/Mau Route Start Time Stop Time Status Last Admin Dose Admin Morphine Sulfate (MoRPHine SULFATE INJ) 4 mg NOW STAT IV 02/05/17 11:44 02/05/17 11:48 DC 02/05/17 11:59 4 MG Morphine Sulfate (MoRPHine SULFATE INJ) 3 mg NOW STAT IV 02/05/17 14:25 02/05/17 14:26 DC 02/05/17 14:25 3 MG ED Course 1139: The patient was evaluated in room C10. A complete history and physical exam was performed. 1144: Ordered Morphine Sulfate Inj 4 mg IV STAT. 1145: Ordered Morphine Sulfate Inj 4 mg IV PRN. 1146: I discussed the patient with Dr. Rachel Charles [facility] - he says that he agrees with the plan of Morphine and to hold Prednisone at 20 for now. 1224: I reevaluated the patient and his breathing is much improved. 1321: Reevaluated the patient and he is feeling much better. He is waiting for his to return, and would like to go home. 1422: Reevaluated the patient and he would like to go home. His is now here , and I discussed at length having a rescue medication for this at home. We will try Oxy-IR. Discussed results and discharge instructions: He verbalized understanding and agreement. The patient is ready for discharge. 1425: Ordered Morphine Sulfate Inj 3 mg IV. Medical Decision Differential: Infectious, Reactive Airway Disease, Pneumonia, Pneumothorax, COPD , CHF, ACS, Pulmonary Embolism, MSK, GI, Dissection, amongst other etiologies entertained. 61 yr old male arrives with complaint of difficulty breathing. He has long history of COPD with severe emphysema and has been unable to get on transplant list due to cachexia, underweight and smoking history. He has frequent flares which respond essentially to Morphine. Uses morphine tablets at home for outbreaks though seems to be minimally effective recently. Today with third episode of acute shob in last month. Given IV morphine with resolution of symptoms. He declines testing beyond just a CXR because bumped right lower rib a few days ago. Feeling much improved and stable. He is not interested in admission. He is willing to try upping Prednisone to 20mg Daily chronically for now along with we will add Oxy IR to regimen as rescue med and see if this works better. Stable and wishes to get home. Given another dose morphine prior to discharge as is typical treatment for him. I discussed possibility this may worsen and he may need to return. He currently is still willing intubation in future if severe symptoms but understands that he may not be able to wean off ventilator very well. Consults Time Called: 1140 Consulting Physician: Dr. Rachel Charles [facility] Returned Call: [phone] I discussed the patient with Dr. Rachel Charles [facility] - he says that he agrees with the plan of Morphine and to hold Prednisone at 20mg for now. Impression Primary Impression: Chronic obstructive pulmonary disease with frequent exacerbations Additional Impressions: Shortness of breath Hypertension Scribe Attestation The scribe's documentation has been prepared under my direction and personally reviewed by me in its entirety. I confirm that the note above accurately reflects all work, treatment, procedures, and medical decision making performed by me. Departure Information Dispostion Home / Self-Care Prescriptions Oxycodone Immediate Rel Tab (ROXICODONE IR) 5 Mg Tab 1-2 TAB PO Q4H Y for Shortness of Breath, #12 TAB Prov: Harman Watson M.D. 02/05/17 Referrals Hugo Ramos M.D. (PCP) Patient Instructions [facility] Additional Instructions Continue your Prednisone at 20mg daily until otherwise changed by your primary care provider. You have received a narcotic pain medication prescription. These medications may cause drowsiness and should not be used with other sedative medications. Do not drive, drink alcohol, perform dangerous activities, nor make important decisions after taking these medications. intermediate use or inappropriate use may lead to addiction. Problem Qualifiers Additional Impressions: Hypertension Hypertension type: essential hypertension Qualified Codes: I10 - Essential ( primary) hypertension
--- NOTE | 2017-02-05 12:27 | DIAGNOSTIC IMAGING REPORT ---
CHEST ONE VIEW PORTABLE CLINICAL HISTORY: Shortness of breath COMPARISON STUDY: 01/23/2017 FINDINGS: The chest has an emphysematous configuration. There is no failure. There is no focal pulmonary consolidation. There are no pleural effusions.[ IMPRESSION: Emphysema. No acute findings. Electronically signed by: Remi Ly M.D. 02/05/2017 12:25 PM Dictated Date/Time: 02/05/2017 12:25 PM
[2017-02-05 14:06] VITALS: PULSE 76; O2SAT 99
[2017-02-05 14:16] VITALS: BP 163/97
[2017-02-05] MEDS ORDERED: OXYC1TAB3 PO (14:24)
--- NOTE | 2017-02-05 17:38 | Pharmacy Progress Note ---
ED Pharmacist Progress Note Date of Service: Feb 05, 2017. Pharmacist Lady had called from [employer] today asking if provider was aware patient was also receiving Morphine 15mg IR tablets; 15-30mg PO Q 4 hrs PRN up to 5 tablets per day. Discussed w/ Dr Watson, who stated he was aware of this and that the morphine was not relieving the patient's air hunger symptoms and he would like to add the oxycodone IR to his existing regimen as a breakthrough medication. Lady was also given this information and she did not object to filling the new oxycodone Rx.
== END 2017-02-05 14:45 | disposition home or self-care (01) ==
LOC: EDBD 11:07 → C.EDC 11:09
DX: J44.1 Chronic obstructive pulmonary disease with (acute) exacerbation (principal); R06.02 Shortness of breath; I10 Essential (primary) hypertension; J80 Acute respiratory distress syndrome; I25.10 Atherosclerotic heart disease of native coronary artery without angina pectoris; E78.5 Hyperlipidemia, unspecified; E03.9 Hypothyroidism, unspecified; Z99.81 Dependence on supplemental oxygen; Z87.891 Personal history of nicotine dependence; Z79.52 Long term (current) use of systemic steroids; Z79.899 Other long term (current) drug therapy

== ENCOUNTER 2017-02-13 22:43 | Inpatient (IN) | payer BC ==
[~2017-02-13] VITALS: Ht 170.2 cm; Wt 50.0 kg
[~2017-02-13 22:43] MED LIST changes: +OXYC1TAB3 PO; -PRED10TA PO; +PRED20TA PO
--- NOTE | 2017-02-13 23:27 | EMERGENCY ROOM VISIT NOTE ---
History Report prepared by Radhika: Melony Paredes Under the Supervision of: Dr. Harman Watson M.D. First contact with patient: 23:13 Chief Complaint: RESPIRATORY DISTRESS Stated Complaint: RESP DISTRESS Nursing Triage Summary: Pt brought in via ambulance ALS from home. Pt has a significant respiratory history. The pts stated to EMS that he became very short of breath about 2 hours ago. The pt is on 3lpm of oxygen at all times. Pt stated to EMS that when he comes in IV Morphine is the only thing that helps his respiratory distress. Pt was here 2 weeks ago with similar symptoms. When EMS arrived the pt was sitting up in a chair and pulse ox was on in the 70's. Pt was given 125mg solu med and 10mg of morphine enroute. Pts blood pressure was elevated in the 140's / 100's while en route. History of Present Illness The patient is a 61 year old male who presents to the Emergency Room via ALS with complaints of resolved shortness of breath that started 2 hours ago. The patient was walking in his house when the shortness of breath first started. He took an oxycodone, which he typically does when he begins to feel short of breath. This did not relieve his symptoms. Per EMS staff, the patient was sitting in his chair with a pulse ox in the 70s upon their arrival to scene. The patient has an extensive respiratory history. He is on 3 L oxygen continuously. Patient states that IV Morphine has worked for his shortness of breath in the past. He was given 125 mg Solu Medrol and 10 mg Morphine en route which offered relief of the patient's symptoms. Patient states that he is comfortable at this time. Patient denies chest pain or any additional associated symptoms. Source of History: patient, EMS Onset: 2 hours ago Position: other (Respiratory ) Timing: resolved Modifying Factors (Worsening): other (None) Modifying Factors (Relieving): other (IV morphine, Solu Medrol ) Associated Symptoms: No chest pain Review of Systems See HPI for pertinent positives & negatives. A total of 10 systems reviewed and were otherwise negative. Past Medical & Surgical Medical Problems: (1) Acute respiratory failure (2) Anxiety (3) ARDS (adult respiratory distress syndrome) (4) CAD (coronary artery disease) (5) Chest pain (6) Constipation (7) COPD (chronic obstructive pulmonary disease) (8) COPD exacerbation (9) COPD exacerbation (10) COPD exacerbation (11) COPD exacerbation (12) COPD exacerbation (13) COPD exacerbation (14) Coronary Atherosclerosis Of [place] Coronary Vessel (15) Dyslipidemia (16) Emphysema (17) Hypertension Nos (18) Hypothyroidism (19) Pneumonia (20) Respiratory distress (21) Respiratory failure (22) Severe persistent cold-induced asthma with acute exacerbation (23) Supplemental Oxygen (24) Very severe chronic obstructive pulmonary disease Surgical Problems: (1) History of tonsillectomy (2) Percutaneous Translum Coron Angioplasty Status (3) Stented coronary artery Family History Not obtainable due to adoption Social History Smoking Status: Never Smoker Alcohol Use: none Drug Use: none Marital Status: Housing Status: lives with family Occupation Status: retired Current/Historical Medications Scheduled Atorvastatin (Atorvastatin Calcium), 40 MG PO HS Carvedilol (Carvedilol), 6.25 MG PO BID Clopidogrel Bisulfate (Clopidogrel), 75 MG PO DAILY Glycopyrrolate-Formoterol [place]uma (Bevespi Aerosphere 9-4.8 Mcg/Act), 2 PUFF INH BID Levothyroxine Sodium (Synthroid), 88 MCG PO DAILY Oxygen (Oxygen), 2-3 LITER NA CONTINOUS Pantoprazole Sodium (Protonix), 40 MG PO DAILY Theophylline (Williams-24), 400 MG PO DAILY Tiotropium [place] (Spiriva Handihaler), 1 PUFF INH DAILY Scheduled PRN Albuterol Hfa (Ventolin Hfa), 2 PUFFS INH QID PRN for Wheezing Hyoscyamine Sulfate (Hyoscyamine Sulfate), 0.125 MG PO Q6H PRN for Abdominal Pain Morphine Sulfate Ir (Morphine Sulfate Ir), 15-30 MG PO Q4H PRN for Pain Nitroglycerin (Nitrostat), 0.4 MG UT UD PRN for Chest Pain Oxycodone Immediate Rel Tab (Roxicodone Ir), 1-2 TAB PO Q4H PRN for Shortness of Breath Temazepam (Temazepam), 15 MG PO HS PRN for Sleep Allergies Coded Allergies: Doxycycline (Unverified Allergy, Intermediate, TURNS RED, 02/13/17) Albuterol (Verified Allergy, Mild, hypoxia, 02/13/17) Azithromycin (Verified Allergy, Mild, hypoxia, 02/13/17) Ipratropium (Verified Allergy, Mild, hypoxia, 02/13/17) Levofloxacin (Verified Allergy, Mild, hypoxia, 02/13/17) Physical Exam Vital Signs Date Time Temp Pulse Resp B/P Pulse Ox O2 Delivery O2 Flow Rate FiO2 02/14/17 00:27 84 22 125/92 94 Nasal Cannula 3.0 02/13/17 23:43 95 95 02/13/17 23:13 93 100 02/13/17 22:59 95 Nasal Cannula 3.0 02/13/17 22:51 95 Nasal Cannula 3.0 02/13/17 22:51 95 21 149/116 95 Nasal Cannula 3.0 02/13/17 22:50 95 02/13/17 22:48 149/116 Physical Exam GENERAL: Patient is chronically unwell appearing. HEENT: No acute trauma, normocephalic atraumatic, mucous membranes moist, no nasal congestion, no scleral icterus. NECK: No stridor, no adenopathy, no meningismus, trachea is midline. LUNGS: Dyspneic. Minimal air movement bilaterally. Pursed lip breathing noted. HEART: Regular rate and rhythm. No murmurs, rubs, gallops appreciated. ABDOMEN: Soft, nontender, bowel sounds positive, no masses appreciated, no peritonitis. BACK: No midline tenderness, no CVA tenderness EXTREMITIES: Normal motion all extremities, no cyanosis, no edema. NEUROLOGIC: Alert and oriented, no acute motor or sensory deficits, no focal weakness, cranial nerves grossly intact. SKIN: No rash, no jaundice, no diaphoresis. Medical Decision & Procedures ER Provider Diagnostic Interpretation: Chest X-ray per my interpretation, pending radiology review shows: Severe bilateral emphysema similar to previous chest x-ray. Laboratory Results 02/13/17 23:51 Red Blood Count 4.30, Mean Corpuscular Volume 96.0, Mean Corpuscular Hemoglobin 31.4, Mean Corpuscular Hemoglobin Concent 32.7, Mean Platelet Volume 9.3, Neutrophils (%) (Auto) 94.1, Lymphocytes (%) (Auto) 3.1, Monocytes (%) (Auto) 2.1, Eosinophils (%) (Auto) 0.1, Basophils (%) (Auto) 0.0, Neutrophils # (Auto) 13.58, Lymphocytes # (Auto) 0.44, Monocytes # (Auto) 0.30, Eosinophils # (Auto) 0.02, Basophils # (Auto) 0.00 02/13/17 23:51 Test 02/13/17 23:51 White Blood Count 14.42 K/uL (4.8-10.8) Red Blood Count 4.30 M/uL (4.7-6.1) Hemoglobin 13.5 g/dL (14.0-18.0) Hematocrit 41.3 % (42-52) Mean Corpuscular Volume 96.0 fL (80-100) Mean Corpuscular Hemoglobin 31.4 pg (25-34) Mean Corpuscular Hemoglobin Concent 32.7 g/dl (32-36) Platelet Count 171 K/uL (130-400) Mean Platelet Volume 9.3 fL (7.4-10.4) Neutrophils (%) (Auto) 94.1 % Lymphocytes (%) (Auto) 3.1 % Monocytes (%) (Auto) 2.1 % Eosinophils (%) (Auto) 0.1 % Basophils (%) (Auto) 0.0 % Neutrophils # (Auto) 13.58 K/uL (1.4-6.5) Lymphocytes # (Auto) 0.44 K/uL (1.2-3.4) Monocytes # (Auto) 0.30 K/uL (0.11-0.59) Eosinophils # (Auto) 0.02 K/uL (0-0.5) Basophils # (Auto) 0.00 K/uL (0-0.2) RDW Standard Deviation 50.3 fL (36.4-46.3) RDW Coefficient of Variation 14.3 % (11.5-14.5) Immature Granulocyte % (Auto) 0.6 % Immature Granulocyte # (Auto) 0.08 K/uL (0.00-0.02) Venous Blood pH 7.34 (7.36-7.41) Venous Blood Partial Pressure CO2 75 mmHg (38.0-50.0) Venous Blood Partial Pressure O2 32 mmHg Venous Blood HCO3 40 mmol/L Venous Blood Oxygen Saturation < 60.0 % Venous Blood Base Excess 11.0 mmol/L Anion Gap 2.0 mmol/L (3-11) Est Creatinine Clear Calc Drug Dose 87.7 ml/min Estimated GFR () 123.2 Estimated GFR (Non- 106.3 BUN/Creatinine Ratio 34.4 (10-20) Calcium Level 8.8 mg/dl (8.5-10.1) Troponin I < 0.015 ng/ml (0-0.045) Laboratory results as reviewed by me. Medications Administered Medications (Trade) Dose Ordered Sig/Mau Route Start Time Stop Time Status Last Admin Dose Admin Morphine Sulfate (MoRPHine SULFATE INJ) 4 mg STK-MED ONCE .ROUTE 02/14/17 00:21 02/14/17 00:22 DC 02/14/17 00:26 4 MG Morphine Sulfate (MoRPHine SULFATE INJ) 2 mg STK-MED ONCE .ROUTE 02/14/17 00:21 02/14/17 00:22 DC 02/14/17 00:26 2 MG Morphine Sulfate (MoRPHine SULFATE INJ) 4 mg Q2H PRN IV 02/14/17 01:45 02/28/17 01:44 02/14/17 13:09 4 MG ED Course 2318: The patient was evaluated in room B11. A complete history and physical exam was performed. 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 He is agreeable. 2348: Discussed the patient's case with Dr. Perez ([facility]). The patient will be evaluated for further treatment and disposition. 0018: Ordered Morphine Sulfate 6 mg IV. Medical Decision Differential: Infectious, Reactive Airway Disease, Pneumonia, Pneumothorax, COPD , CHF, ACS, Pulmonary Embolism, MSK, GI, Dissection, amongst other etiologies entertained. 61 yr old very pleasant male with long history of advanced emphysema who arrives in acute exacerbation. He is well known to me and department from previous visits. I have cared for him several times in last few months with similar symptoms. Always improves on Morphine and requests to go home. This time he is in more distress then usual. I do not think he will do well as an outpatient at this time. No infectious symptoms and I suspect mostly underlying this is exacerbation. He is to point where he can not even walk across room at home without rapidly decompensating. Was not doing well on PO Morphine for exacerbations at home thus we had tried Oxy IR which did modestly better though still not to point of keeping him out of ED. He has been denied transplant list secondary to his advanced status and cachexia. I discussed hospice/palliative care possibilities. It was felt that given how this episode is worse than usual and patient's wish to try and start decreasing ED visits we would bring him in for further work-up and evaluation which he agrees to and his very much feels is necessary. Consults Time Called: 1140 Consulting Physician: Dr. Perez ([facility]) Returned Call: [phone] Discussed the patient's case with Dr. Perez ([facility]). The patient will be evaluated for further treatment and disposition. Impression Primary Impression: Acute exacerbation of emphysema Scribe Attestation The scribe's documentation has been prepared under my direction and personally reviewed by me in its entirety. I confirm that the note above accurately reflects all work, treatment, procedures, and medical decision making performed by me. Departure Information Dispostion Being Evaluated By Hospitalist Referrals No Doctor, Assigned (PCP) Patient Instructions Asthma - [facility], COPD - [facility], Croup - [facility], My [facility]
[2017-02-13] MEDS ORDERED: LEVO88TA PO (23:30)
[2017-02-14 00:04] LABS: COMPLETE YES; EOS % 0.1 %; HEMATOCRIT 41.3 % (42-52); IG% 0.6 %; LYMPH % 3.1 %; LYMPH ABS # 0.44 K/uL (1.2-3.4); MEAN CORPUSCULAR HEMOGLOBIN 31.4 pg (25-34); MEAN CORPUSCULAR HGB CONC 32.7 g/dl (32-36); MEAN PLATELET VOLUME 9.3 fL (7.4-10.4); MONO % 2.1 %; NEUT % 94.1 %; PLATELET COUNT 171 K/uL (130-400); WHITE BLOOD COUNT 14.42 K/uL (4.8-10.8)
[2017-02-14] MEDS ORDERED: MoRPHine SULFATE 10 MG/ML CARP/VIAL IV STA (00:18)
[2017-02-14] MEDS ORDERED: MoRPHine SULFATE 4 MG/ML 1 ML CARP\\VIAL ONE ×2 (00:21→03:21)
[2017-02-14] MEDS ORDERED: MoRPHine SULFATE 2 MG/ML CARP ONE (00:21)
[2017-02-14 00:22] LABS: VENOUS BLOOD GAS PCO2 75 mmHg (38.0-50.0); VENOUS BLOOD GAS PO2 32 mmHg
[2017-02-14 00:24] LABS: VEN BLD GAS O2 SATURATION < 60.0 %
[2017-02-14 00:36] LABS: BLOOD UREA NITROGEN 21 mg/dl (7-18); BUN/CREATININE RATIO 34.4 (10-20); CALCIUM 8.8 mg/dl (8.5-10.1); CARBON DIOXIDE 41 mmol/L (21-32); CHLORIDE 99 mmol/L (98-107); CREATININE 0.61 mg/dl (0.60-1.40); GLUCOSE 153 mg/dl (70-99); POTASSIUM 4.1 mmol/L (3.5-5.1); SODIUM 142 mmol/L (136-145)
[2017-02-14] MEDS ORDERED: ONDANSETRON INJ 2 MG/ML 2 ML VIAL IV PRN (01:45)
[2017-02-14] MEDS ORDERED: ALUMINUM/MAGNESIUM/SIMETH (MAALOX MAX) 30 ML UDC PO PRN (01:45)
[2017-02-14] MEDS ORDERED: TEMAZEPAM 15 MG CAP PO PRN (01:45)
[2017-02-14] MEDS ORDERED: NITROGLYCERIN 0.4 MG SL PER TAB CHARGE UT PRN (01:45)
[2017-02-14] MEDS ORDERED: MAGNESIUM HYDROXIDE SUSP 30 ML UDC PO PRN (01:45)
[2017-02-14] MEDS ORDERED: MoRPHine SULFATE IR 15 MG TAB (IMMEDIATE RELEASE) PO PRN (01:45)
[2017-02-14] MEDS ORDERED: ALBUTEROL HFA 8 GM INHALER INH PRN (01:45)
[2017-02-14] MEDS ORDERED: HYOSCYAMINE SULFATE 0.125 MG SL TAB PO PRN (01:45)
[2017-02-14] MEDS ORDERED: ACETAMINOPHEN 325 MG TAB PO PRN (01:45)
[2017-02-14] MEDS ORDERED: POLYETHYLENE (MIRALAX) 17 GM PACK PO PRN (01:45)
[2017-02-14 03:00] VITALS: BP 138/94; PULSE 76; TEMP 36.7; O2SAT 96; Ht 170.2 cm; Wt 50.0 kg
--- NOTE | 2017-02-14 04:20 | History and Physical ---
History & Physical Date & Time of Service: Feb 14, 2017 at 04:04 Chief Complaint: Resp Distress Primary Care Physician: Hugo Ramos M.D. History of Present Illness Source: patient, spouse 60 y/o M with end-stage COPD and multiple hospital visits for exacerbations, CAD , anxiety, hypothyroidism. Pt has been progressively SOB over the past 1-2 days. He denies a fever or a productive cough. He denies CP. He is normally on 2-3 L 02 continuously at home and does not describe an increase in oxygen requirements. He attempted recently to get on a transplant list but has been declined thus far due to weight loss and a poor constitution. He has previously required intubation due to his COPD. Past Medical/Surgical History Medical Problems: (1) Acute respiratory failure Status: Resolved (2) Anxiety Status: Chronic (3) ARDS (adult respiratory distress syndrome) Status: Resolved (4) CAD (coronary artery disease) Status: Chronic (5) Chest pain Status: Resolved (6) Constipation Status: Resolved (7) COPD (chronic obstructive pulmonary disease) Status: Chronic (8) COPD exacerbation Status: Resolved (9) COPD exacerbation Status: Resolved (10) COPD exacerbation Status: Resolved (11) COPD exacerbation Status: Resolved (12) COPD exacerbation Status: Resolved (13) COPD exacerbation Status: Resolved (14) Coronary Atherosclerosis Of [place] Coronary Vessel Status: Chronic (15) Dyslipidemia Status: Chronic (16) Emphysema Status: Resolved (17) Hypertension Nos Status: Chronic (18) Hypothyroidism Status: Chronic (19) Pneumonia Status: Resolved (20) Respiratory distress Status: Resolved (21) Respiratory failure Status: Resolved (22) Severe persistent cold-induced asthma with acute exacerbation Status: Resolved (23) Supplemental Oxygen Status: Chronic (24) Very severe chronic obstructive pulmonary disease Status: Resolved Surgical Problems: (1) History of tonsillectomy Status: Resolved (2) Percutaneous Translum Coron Angioplasty Status Status: Resolved (3) Stented coronary artery Status: Chronic Family History Not obtainable due to adoption Social History Smoking Status: Never Smoker Drug Use: none Marital Status: Housing status: lives with significant other Occupational Status: retired Immunizations History of Influenza Vaccine: Yes Influenza Vaccine Date: Jul 18, 2011 History of Tetanus Vaccine?: Yes History of Pneumococcal: Yes Pneumococcal Date: Jul 18, 2011 History of Hepatitis B Vaccine: No Multi-Drug Resistant Organisms History of MDRO: No Allergies Coded Allergies: Doxycycline (Unverified Allergy, Intermediate, TURNS RED, 02/13/17) Albuterol (Verified Allergy, Mild, hypoxia, 02/13/17) Azithromycin (Verified Allergy, Mild, hypoxia, 02/13/17) Ipratropium (Verified Allergy, Mild, hypoxia, 02/13/17) Levofloxacin (Verified Allergy, Mild, hypoxia, 02/13/17) Home Medications Scheduled Atorvastatin (Atorvastatin Calcium), 40 MG PO HS Carvedilol (Carvedilol), 6.25 MG PO BID Clopidogrel Bisulfate (Clopidogrel), 75 MG PO DAILY Glycopyrrolate-Formoterol Fuma (Bevespi Aerosphere 9-4.8 Mcg/Act), 2 PUFF INH BID Levothyroxine Sodium (Synthroid), 88 MCG PO DAILY Oxygen (Oxygen), 2-3 LITER NA CONTINOUS Pantoprazole Sodium (Protonix), 40 MG PO DAILY Theophylline (Williams-24), 400 MG PO DAILY Tiotropium Gray (Spiriva Handihaler), 1 PUFF INH DAILY Scheduled PRN Albuterol Hfa (Ventolin Hfa), 2 PUFFS INH QID PRN for Wheezing Hyoscyamine Sulfate (Hyoscyamine Sulfate), 0.125 MG PO Q6H PRN for Abdominal Pain Morphine Sulfate Ir (Morphine Sulfate Ir), 15-30 MG PO Q4H PRN for Pain Nitroglycerin (Nitrostat), 0.4 MG UT UD PRN for Chest Pain Oxycodone Immediate Rel Tab (Roxicodone Ir), 1-2 TAB PO Q4H PRN for Shortness of Breath Temazepam (Temazepam), 15 MG PO HS PRN for Sleep Review of Systems Constitutional: No chills, No fever, No sweats Eyes: No eye pain, No worsening of vision ENT: No hearing loss, No nasal symptoms, No unusual epistaxis Respiratory: + dyspnea at rest, + dyspnea on exertion, + shortness of breath, + wheezing, No cough, No sputum Cardiovascular: No PND, No chest pain, No orthopnea Abdomen: No nausea, No pain, No vomiting Musculoskeletal: No joint pain Genitourinary - Male: No dysuria, No hematuria Neurologic: No memory loss, No paralysis, No weakness Psychiatric: + depression symptoms Endocrine: No fatigue Hematologic / Lymphatic: No abnormal bleeding/bruising Integumentary: No rash Allergic / Immunologic: No environmental allergies Physical Exam Vital Signs Date Time Temp Pulse Resp B/P Pulse Ox O2 Delivery O2 Flow Rate FiO2 02/14/17 01:55 83 22 134/90 96 Nasal Cannula 3.0 02/14/17 00:27 84 22 125/92 94 Nasal Cannula 3.0 02/13/17 23:43 95 95 02/13/17 23:13 93 100 02/13/17 22:59 95 Nasal Cannula 3.0 02/13/17 22:51 95 Nasal Cannula 3.0 02/13/17 22:51 95 21 149/116 95 Nasal Cannula 3.0 02/13/17 22:50 95 02/13/17 22:48 149/116 General Appearance: no apparent distress, + cachetic, + pertinent finding ( Emaciated midle aged male in no acute distress) Head: normocephalic, atraumatic ENT: normal ENT inspection, pharynx normal Neck: supple, no JVD Respiratory/Chest: chest non-tender, + decreased breath sounds, + accessory muscle use, + pertinent finding (Very poor air movement - no audible crackles/ wheezing) Cardiovascular: regular rate, rhythm, no edema, no gallop Abdomen/GI: normal bowel sounds, non tender, soft Back: normal inspection, no CVA tenderness Extremities/Musculoskelatal: normal inspection, no calf tenderness, normal capillary refill, no pedal edema, normal range of motion Neurologic/Psych: 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 as tested, no motor/sensory deficits, alert, normal mood/affect, normal reflexes, oriented x 3 Skin: normal color, warm/dry, no rash Diagnostics Laboratory Results Results Past 24 Hours Test 02/13/17 23:51 Range/Units White Blood Count 14.42 4.8-10.8 K/uL Red Blood Count 4.30 4.7-6.1 M/uL Hemoglobin 13.5 14.0-18.0 g/dL Hematocrit 41.3 42-52 % Mean Corpuscular Volume 96.0 80-100 fL Mean Corpuscular Hemoglobin 31.4 25-34 pg Mean Corpuscular Hemoglobin Concent 32.7 32-36 g/dl Platelet Count 171 130-400 K/uL Mean Platelet Volume 9.3 7.4-10.4 fL Neutrophils (%) (Auto) 94.1 % Lymphocytes (%) (Auto) 3.1 % Monocytes (%) (Auto) 2.1 % Eosinophils (%) (Auto) 0.1 % Basophils (%) (Auto) 0.0 % Neutrophils # (Auto) 13.58 1.4-6.5 K/uL Lymphocytes # (Auto) 0.44 1.2-3.4 K/uL Monocytes # (Auto) 0.30 0.11-0.59 K/uL Eosinophils # (Auto) 0.02 0-0.5 K/uL Basophils # (Auto) 0.00 0-0.2 K/uL RDW Standard Deviation 50.3 36.4-46.3 fL RDW Coefficient of Variation 14.3 11.5-14.5 % Immature Granulocyte % (Auto) 0.6 % Immature Granulocyte # (Auto) 0.08 0.00-0.02 K/uL Venous Blood pH 7.34 7.36-7.41 Venous Blood Partial Pressure CO2 75 38.0-50.0 mmHg Venous Blood Partial Pressure O2 32 mmHg Venous Blood HCO3 40 mmol/L Venous Blood Oxygen Saturation < 60.0 % Venous Blood Base Excess 11.0 mmol/L Sodium Level 142 136-145 mmol/L Potassium Level 4.1 3.5-5.1 mmol/L Chloride Level 99 98-107 mmol/L Carbon Dioxide Level 41 21-32 mmol/L Anion Gap 2.0 3-11 mmol/L Blood Urea Nitrogen 21 7-18 mg/dl Creatinine 0.61 0.60-1.40 mg/dl Est Creatinine Clear Calc Drug Dose 87.7 ml/min Estimated GFR () 123.2 Estimated GFR (Non- 106.3 BUN/Creatinine Ratio 34.4 10-20 Random Glucose 153 70-99 mg/dl Calcium Level 8.8 8.5-10.1 mg/dl Troponin I < 0.015 0-0.045 ng/ml Diagnostic Radiology No acute infiltrates on CXR Impression Assessment and Plan 60 y/o M with end-stage COPD and multiple hospital visits for exacerbations, CAD , anxiety, hypothyroidism. Pt has been progressively SOB over the past 1-2 days. He denies a fever or a productive cough. He denies CP. He is normally on 2-3 L 02 continuously at home and does not describe an increase in oxygen requirements. He attempted recently to get on a transplant list but has been declined thus far due to weight loss and a poor constitution. He has previously required intubation due to his COPD. 1) COPD exacerbation - pt responds adversely to nebulizers. We will keep him on his home inhalers and start IV Solumedrol and Abx. He is most helped by IV Morphine when he feels exceedingly SOB. 2) CAD - no CP or evidence of ACS. Cont B mane, Statin, NTG as needed 3) Anxiety - will provide Lorazepam PRN 4) Hypothyroidism - cont Synthroid 5) I have requested a palliative consult by request of the pt and his . They are not currently interested in hospice care however, they would like to have a PICC or PORT placed so that they can manage the Pts COPD in the outpt setting and avoid frequent admissions. Full code - Heparin prophylaxis Total time for this admit including review of labs, meds, imaging, records - discussion with Pt/, ER attending - 35 min Level of Care Telemetry Resuscitation Status FULL RESUSCITATION VTE Prophylaxis VTE Risk Assessment Done? Y/N: Yes Risk Level: Moderate Given or contraindicated: Unfractionated heparin SQ
[2017-02-14] MEDS ORDERED: LORAZEPAM 1 MG TAB PO PRN (04:30)
[2017-02-14 07:27] VITALS: BP 137/80; PULSE 81; TEMP 36.6; O2SAT 98
[2017-02-14] MEDS: PANTOprazole SOD 40 MG TAB PO SCH (07:30)
[2017-02-14] MEDS: METHYLPREDNISOLONE IV 60 MG in SYRINGE 0 ML IV SCH ×3 (07:30→19:32)
[2017-02-14] MEDS: TIOTROPIUM BROMIDE 5 PUFF/90 MCG INH INH SCH (07:30)
[2017-02-14] MEDS: CLOPIDOGREL BISULFATE 75 MG TAB PO SCH (07:31)
[2017-02-14] MEDS: LEVOTHYROXINE 88 MCG TAB PO SCH (07:31)
[2017-02-14] MEDS: THEOPHYLLINE 400MG CONTROLLED REL TAB PO SCH (07:31)
[2017-02-14] MEDS: CARVEDILOL 6.25 MG TAB PO SCH ×2 (07:31→17:13)
--- NOTE | 2017-02-14 07:36 | DIAGNOSTIC IMAGING REPORT ---
SINGLE VIEW CHEST CLINICAL HISTORY: Emphysema. FINDINGS: An AP, portable, upright chest radiograph is compared to study dated 02/05/2017 and correlated with chest CT dated 05/06/2016. The examination is severely degraded by portable technique and patient rotation. The right chest wall is collimated from view. The heart is top normal for projection and there is atherosclerotic calcification of the thoracic aorta. The pulmonary vasculature is noncongested. Advanced emphysema and chronic interstitial thickening are similar to previous. No airspace consolidation, large pleural effusion, or pneumothorax is seen. The skeletal structures are osteopenic. The bony thorax is grossly intact. IMPRESSION: Advanced emphysema with no acute cardiopulmonary abnormality. Electronically signed by: Jimi Bernard M.D. 02/14/2017 7:34 AM Dictated Date/Time: 02/14/2017 7:32 AM
[2017-02-14 08:50] LABS: PARTIAL THROMBOPLASTIN RATIO 0.9; PROTHROMBIN TIME (PATIENT) 10.8 SECONDS (9.0-12.0)
[2017-02-14] MEDS: MoRPHine SULFATE 4 MG/ML 1 ML CARP\\VIAL IV PRN ×5 (10:22→21:36)
[2017-02-14] MEDS: HEPARIN SOD 5000 UNIT/0.5 ML CARP SQ SCH ×2 (13:14→21:37)
--- NOTE | 2017-02-14 14:13 | Family Medicine Progress Note ---
Progress Note Date of Service Feb 14, 2017. Subjective Pain: denies pain PO Intake: adequate Voiding: no voiding problems Patient reports significant improvement from previous day. He reports his productive cough, SOB symptoms are at baseline. denies cp, fevers, n/v abdominal pain, change in stool Constitutional: No chills, No fever, No weakness, No weight loss Respiratory: + cough, + shortness of breath, + sputum Cardiovascular: No PND, No chest pain, No edema, No orthopnea, No palpitations Abdomen: No constipation, No diarrhea, No nausea, No pain, No vomiting Musculoskeletal: No calf pain, No swelling Male : No dysuria, No urinary frequency Neurologic: No numbness/tingling, No vertigo Psychiatric: No anxiety Skin: No itch, No rash Medications Current Inpatient Medications Medications (Trade) Dose Ordered Sig/Mau Route Start Time Stop Time Status Last Admin Dose Admin Albuterol (Ventolin Hfa Inhaler) 2 puffs QID PRN INH 02/14/17 01:45 03/16/17 01:44 Atorvastatin Calcium (Lipitor Tab) 40 mg HS PO 02/14/17 21:00 03/16/17 20:59 Carvedilol (Coreg Tab) 6.25 mg BID PO 02/14/17 08:00 03/16/17 08:59 02/14/17 07:31 6.25 MG Clopidogrel Bisulfate (plAVix TAB) 75 mg DAILY PO 02/14/17 08:00 03/16/17 08:59 02/14/17 07:31 75 MG Hyoscyamine Sulfate (Levsin Tab) 0.125 mg Q6H PRN PO 02/14/17 01:45 03/16/17 01:44 Levothyroxine Sodium (Synthroid Tab) 88 mcg DAILYBB PO 02/14/17 07:00 03/16/17 06:59 02/14/17 07:31 88 MCG Morphine Sulfate (MoRPHine SULFATE IR TAB) 30 mg Q4H PRN PO 02/14/17 01:45 02/28/17 01:44 Nitroglycerin (Nitrostat Tab) 0.4 mg UD PRN UT 02/14/17 01:45 03/16/17 01:44 Temazepam (Restoril Cap) 15 mg HS PRN PO 02/14/17 01:45 03/16/17 01:44 Tiotropium Pinch (Spiriva Handihaler Inhaler) 1 puff DAILY INH 02/14/17 08:00 03/16/17 08:59 02/14/17 07:30 1 PUFF Pantoprazole Sodium (Protonix Tab) 40 mg DAILY PO 02/14/17 08:00 03/16/17 08:59 02/14/17 07:30 40 MG Theophylline (Uniphyl Controlled Rel 24hr Tab) 400 mg DAILY PO 02/14/17 08:00 03/16/17 08:59 02/14/17 07:31 400 MG Morphine Sulfate 4 mg 4 mg Q2H PRN IV 02/14/17 01:45 02/28/17 01:44 02/14/17 13:09 4 MG Methylprednisolone Sodium Succinate/ Syringe (Solu-Medrol IV/ Syringe) 0.96 ml @ 1.5 mls/min Q6H IV 02/14/17 08:00 03/16/17 07:59 02/14/17 13:09 1.5 MLS/MIN Heparin Sodium (Porcine) (Heparin Sq 5000 Unit/0.5ml) 5,000 unit Q8 SQ 02/14/17 14:00 03/16/17 13:59 02/14/17 13:14 5,000 UNIT Acetaminophen (Tylenol Tab) 650 mg Q4H PRN PO 02/14/17 01:45 03/16/17 01:44 Al Hydrox/Mg Hydrox/Simethicone (Maalox Max Susp) 15 ml Q4H PRN PO 02/14/17 01:45 03/16/17 01:44 Magnesium Hydroxide (Milk Of Magnesia Susp) 30 ml Q6H PRN PO 02/14/17 01:45 03/16/17 01:44 Polyethylene (Miralax Powder Packet) 17 gm DAILY PRN PO 02/14/17 01:45 03/16/17 01:44 Ondansetron HCl (Zofran Inj) 4 mg Q6H PRN IV 02/14/17 01:45 03/16/17 01:44 Lorazepam (Ativan Tab) 1 mg Q6H PRN PO 02/14/17 04:30 03/16/17 04:29 Non-Formulary Medication (Non-Formulary Patient'S Own Med) 1 ea BID INH 02/14/17 20:00 03/16/17 19:59 UNV Objective Vital Signs Date Time Temp Pulse Resp B/P Pulse Ox O2 Delivery O2 Flow Rate FiO2 02/14/17 08:00 Nasal Cannula 3.0 02/14/17 07:27 36.6 81 18 137/80 98 Nasal Cannula 3.0 02/14/17 03:00 36.7 76 22 138/94 96 Nasal Cannula 3.0 02/14/17 01:55 83 22 134/90 96 Nasal Cannula 3.0 02/14/17 00:27 84 22 125/92 94 Nasal Cannula 3.0 02/13/17 23:43 95 95 02/13/17 23:13 93 100 02/13/17 22:59 95 Nasal Cannula 3.0 02/13/17 22:51 95 Nasal Cannula 3.0 02/13/17 22:51 95 21 149/116 95 Nasal Cannula 3.0 02/13/17 22:50 95 02/13/17 22:48 149/116 Physical Exam General Appearance: WD/WN, no apparent distress, + thin Respiratory/Chest: chest non-tender, lungs clear, no accessory muscle use, + pertinent finding (dec'd breath sounds aime lung bases, no wheeze, no rhocnhi) Cardiovascular: regular rate, rhythm, no edema, no murmur Abdomen: normal bowel sounds, non tender, soft Extremities: normal inspection, no pedal edema, no calf tenderness Neurologic/Psychiatric: alert, normal mood/affect, oriented x 3 Skin: normal color, warm/dry Laboratory Results Results Past 24 Hours Test 02/13/17 23:51 02/14/17 08:21 Range/Units White Blood Count 14.42 4.8-10.8 K/uL Red Blood Count 4.30 4.7-6.1 M/uL Hemoglobin 13.5 14.0-18.0 g/dL Hematocrit 41.3 42-52 % Mean Corpuscular Volume 96.0 80-100 fL Mean Corpuscular Hemoglobin 31.4 25-34 pg Mean Corpuscular Hemoglobin Concent 32.7 32-36 g/dl Platelet Count 171 130-400 K/uL Mean Platelet Volume 9.3 7.4-10.4 fL Neutrophils (%) (Auto) 94.1 % Lymphocytes (%) (Auto) 3.1 % Monocytes (%) (Auto) 2.1 % Eosinophils (%) (Auto) 0.1 % Basophils (%) (Auto) 0.0 % Neutrophils # (Auto) 13.58 1.4-6.5 K/uL Lymphocytes # (Auto) 0.44 1.2-3.4 K/uL Monocytes # (Auto) 0.30 0.11-0.59 K/uL Eosinophils # (Auto) 0.02 0-0.5 K/uL Basophils # (Auto) 0.00 0-0.2 K/uL RDW Standard Deviation 50.3 36.4-46.3 fL RDW Coefficient of Variation 14.3 11.5-14.5 % Immature Granulocyte % (Auto) 0.6 % Immature Granulocyte # (Auto) 0.08 0.00-0.02 K/uL Venous Blood pH 7.34 7.36-7.41 Venous Blood Partial Pressure CO2 75 38.0-50.0 mmHg Venous Blood Partial Pressure O2 32 mmHg Venous Blood HCO3 40 mmol/L Venous Blood Oxygen Saturation < 60.0 % Venous Blood Base Excess 11.0 mmol/L Sodium Level 142 136-145 mmol/L Potassium Level 4.1 3.5-5.1 mmol/L Chloride Level 99 98-107 mmol/L Carbon Dioxide Level 41 21-32 mmol/L Anion Gap 2.0 3-11 mmol/L Blood Urea Nitrogen 21 7-18 mg/dl Creatinine 0.61 0.60-1.40 mg/dl Est Creatinine Clear Calc Drug Dose 87.7 ml/min Estimated GFR () 123.2 Estimated GFR (Non- 106.3 BUN/Creatinine Ratio 34.4 10-20 Random Glucose 153 70-99 mg/dl Calcium Level 8.8 8.5-10.1 mg/dl Troponin I < 0.015 0-0.045 ng/ml Prothrombin Time 10.8 9.0-12.0 SECONDS Prothromb Time International Ratio 1.0 0.9-1.1 Activated Partial Thromboplast Time 24.3 21.0-31.0 SECONDS Partial Thromboplastin Ratio 0.9 Assessment and Plan 60 yo M w/ hx of COPD on albuterol, Spiriva inhalers at home along with 2L O2, with several previous hospital admissions for COPD exacerbation p/w Acute SOB x 2 days. afebrile. Currently feeling at baseline saturating well on 3L, on IV Solu-medrol and home inhalers due to patient reporting he cannot tolerate nebulizers. Dyspnea, Cough saturating well on 3L, Attempt to wean to 2L (home o2 level) -most likely secondary to COPD exacerbation -CXR showing advances emphysema, no acute abnormality -Albuterol Spiriva, INH - no nebulizers (Pt refuses due to previous adverse effects) -Continue to IV SOlu-medrol -Plan to switch to PO steroid prior to discharge -F/u palliative care consult requested by family with idea of getting a PICC line or Port to be treated at home and avoid admissions CAD -Continue Coreg -COntinue Pavix Anxiety Ativan PRN Hypothyroidism Continue Synthroid HTN Coreg as above DVT Prophylaxis Heparin Resident Physician Supervision Note: I was present with Dr. Perry during the history and exam. I discussed the case with the resident and agree with the findings and plan as documented in the note. Any exceptions or clarifications are listed here: I does patient well from previous hospitalizations. We had talked about hospice and a palliative approach as long ago as last summer during his admission. He's had a palliative care consult and he is now willing to enter hospice program. We briefly reviewed the concept of hospice care and the benefits of such. He is an appropriate candidate based on his COPD and numerous recent hospitalizations which support a pattern of worsening pulmonary function. At this point, we discussed discharge tomorrow with hospice services. Documented By: Chuck Romero Continued [facility] stay due to: multiple IV medications needed Discharge planning: home Resident Tracking Resident Involvement: Resident Care Provided Care Provided: Adult Hospital Medicine
[2017-02-14 16:10] VITALS: BP 137/91; PULSE 74; TEMP 36.5; O2SAT 97
--- NOTE | 2017-02-14 16:15 | Palliative Care Consultation ---
Consultation Date of Consultation: Feb 14, 2017. Requesting Physician: Dr. Perez Attending Physician: Dr. Romero Reason for Consultation: Goals of care, symptom management History of Present Illness This 61 year old gentleman presented to the ED yesterday with severe shortness of breath. Patient has end-stage COPD, was attempting to get on the lung transplant list back in 2013, but became too ill and deconditioned. CXR showed advanced emphysema but no acute cardiopulmonary abnormality. He now lives home with his and together they try to manage the patient's COPD. He is so short of breath that he is barely able to make it 10 feet ambulating, then he has to stop and rest. Yesterday, he was trying to get to his bedside commode when his shortness of breath became so severe that his had to call 911. He follows with Dr. Ramos, Dr. Watson and Dr. Gomez. Currently, he takes PO Morphine IR 30mg tabs five times a day, then has oxycodone IR 5mg Q4 PO PRN but has only taken 3 doses of this so far-- once on Saturday, once on Saturday, and once last night. The problem is, the patient cannot swallow pills when he is so SOB. He was inquiring about a port or a PICC line for home for his to inject IV morphine like we do at the hospital because that is the only thing that works for him. Palliative care asked to see patient to establish goals of care and recommend symptom management. Met with patient and his , Nelda, in room 406. They provided me the above history. The patient strictly comes into the hospital for IV morphine to stop his episode of SOB. The pills normally work pretty well at home, but again, the issue is that he can't swallow when he is having an episode. We discussed goals o fcare. The patient does not want to be in the hospital. his goal is to be comfortable and be at home with his . He also wants to maintain the function he does still have. We discussed his COPD and the fact that it is end- stage-- they verbalized understanding. I presented the idea of hospice and what they do. Also discussed code status as patient is a level one. I explained that if we continue to increase his narcotics for symptom management he needs to understand the risk of double effect; and we don't want to increase the risk of double effect of respiratory depression/sedation if he is not okay with that. He and his wanted to think things over. About 30 minutes later, I got a call back and the patient and wanted to speak with me again. they decided they would like to go home with hospice. I provided them a list of agencies. Also took in a POLST form and fully explained it. They will let us know their decision tomorrow. Past Medical/Surgical History Medical History: Respiratory failure Anxiety ARDS (adult respiratory distress syndrome) CAD (coronary artery disease) Chest pain Constipation COPD, end-stage Coronary Atherosclerosis Of [place] Coronary Vessel Dyslipidemia Emphysema Hypertension Hypothyroidism Pneumonia Severe persistent cold-induced asthma with acute exacerbation Supplemental Oxygen Surgical Problems: History of tonsillectomy Stented coronary artery Social History Smoking Status: Never Smoker History of Alcohol Use: No Drug Use: none Marital Status: Housing Status: lives with significant other Occupation Status: retired Review of Systems Constitutional: + weakness, No weight loss (has been about 104lbs for the last year) Respiratory: + cough, + dyspnea at rest, + dyspnea on exertion, + shortness of breath, No wheezing Cardiac: No chest pain, No palpitations Abdomen: No nausea, No pain, No vomiting Allergies Coded Allergies: Doxycycline (Unverified Allergy, Intermediate, TURNS RED, 02/13/17) Albuterol (Verified Allergy, Mild, hypoxia, 02/13/17) Azithromycin (Verified Allergy, Mild, hypoxia, 02/13/17) Ipratropium (Verified Allergy, Mild, hypoxia, 02/13/17) Levofloxacin (Verified Allergy, Mild, hypoxia, 02/13/17) Medications Current Inpatient Medications Medications (Trade) Dose Ordered Sig/Mau Route Start Time Stop Time Status Last Admin Dose Admin Albuterol (Ventolin Hfa Inhaler) 2 puffs QID PRN INH 02/14/17 01:45 03/16/17 01:44 Atorvastatin Calcium (Lipitor Tab) 40 mg HS PO 02/14/17 21:00 03/16/17 20:59 Carvedilol (Coreg Tab) 6.25 mg BID PO 02/14/17 08:00 03/16/17 08:59 02/14/17 07:31 6.25 MG Clopidogrel Bisulfate (plAVix TAB) 75 mg DAILY PO 02/14/17 08:00 03/16/17 08:59 02/14/17 07:31 75 MG Hyoscyamine Sulfate (Levsin Tab) 0.125 mg Q6H PRN PO 02/14/17 01:45 03/16/17 01:44 Levothyroxine Sodium (Synthroid Tab) 88 mcg DAILYBB PO 02/14/17 07:00 03/16/17 06:59 02/14/17 07:31 88 MCG Morphine Sulfate (MoRPHine SULFATE IR TAB) 30 mg Q4H PRN PO 02/14/17 01:45 02/28/17 01:44 Nitroglycerin (Nitrostat Tab) 0.4 mg UD PRN UT 02/14/17 01:45 03/16/17 01:44 Temazepam (Restoril Cap) 15 mg HS PRN PO 02/14/17 01:45 03/16/17 01:44 Tiotropium [place] (Spiriva Handihaler Inhaler) 1 puff DAILY INH 02/14/17 08:00 03/16/17 08:59 02/14/17 07:30 1 PUFF Pantoprazole Sodium (Protonix Tab) 40 mg DAILY PO 02/14/17 08:00 03/16/17 08:59 02/14/17 07:30 40 MG Theophylline (Uniphyl Controlled Rel 24hr Tab) 400 mg DAILY PO 02/14/17 08:00 03/16/17 08:59 02/14/17 07:31 400 MG Morphine Sulfate 4 mg 4 mg Q2H PRN IV 02/14/17 01:45 02/28/17 01:44 02/14/17 13:09 4 MG Methylprednisolone Sodium Succinate/ Syringe (Solu-Medrol IV/ Syringe) 0.96 ml @ 1.5 mls/min Q6H IV 02/14/17 08:00 03/16/17 07:59 02/14/17 13:09 1.5 MLS/MIN Heparin Sodium (Porcine) (Heparin Sq 5000 Unit/0.5ml) 5,000 unit Q8 SQ 02/14/17 14:00 03/16/17 13:59 02/14/17 13:14 5,000 UNIT Acetaminophen (Tylenol Tab) 650 mg Q4H PRN PO 02/14/17 01:45 03/16/17 01:44 Al Hydrox/Mg Hydrox/Simethicone (Maalox Max Susp) 15 ml Q4H PRN PO 02/14/17 01:45 03/16/17 01:44 Magnesium Hydroxide (Milk Of Magnesia Susp) 30 ml Q6H PRN PO 02/14/17 01:45 03/16/17 01:44 Polyethylene (Miralax Powder Packet) 17 gm DAILY PRN PO 02/14/17 01:45 03/16/17 01:44 Ondansetron HCl (Zofran Inj) 4 mg Q6H PRN IV 02/14/17 01:45 03/16/17 01:44 Lorazepam (Ativan Tab) 1 mg Q6H PRN PO 02/14/17 04:30 03/16/17 04:29 Non-Formulary Medication (Non-Formulary Patient'S Own Med) 1 ea BID INH 02/14/17 20:00 03/16/17 19:59 UNV Physical Exam Date Time Temp Pulse Resp B/P Pulse Ox O2 Delivery O2 Flow Rate FiO2 02/14/17 08:00 Nasal Cannula 3.0 02/14/17 07:27 36.6 81 18 137/80 98 Nasal Cannula 3.0 02/14/17 03:00 36.7 76 22 138/94 96 Nasal Cannula 3.0 02/14/17 01:55 83 22 134/90 96 Nasal Cannula 3.0 02/14/17 00:27 84 22 125/92 94 Nasal Cannula 3.0 02/13/17 23:43 95 95 02/13/17 23:13 93 100 02/13/17 22:59 95 Nasal Cannula 3.0 02/13/17 22:51 95 Nasal Cannula 3.0 02/13/17 22:51 95 21 149/116 95 Nasal Cannula 3.0 02/13/17 22:50 95 02/13/17 22:48 149/116 General Appearance: no apparent distress, + thin, + pertinent finding ( chronically ill appearing) ENT: hearing grossly normal Neck: supple, no JVD Respiratory: + decreased breath sounds, + accessory muscle use, + pertinent finding (clearly dyspneic at rest) Cardiovascular: regular rate, rhythm, no edema Abdomen: normal bowel sounds, non tender, soft Neurologic/Psychiatric: alert, normal mood/affect, oriented x 3 Skin: + pertinent finding (fragile, scattered ecchymosis) Laboratory Results Last 24 Hours Test 02/13/17 23:51 02/14/17 08:21 White Blood Count 14.42 K/uL Red Blood Count 4.30 M/uL Hemoglobin 13.5 g/dL Hematocrit 41.3 % Mean Corpuscular Volume 96.0 fL Mean Corpuscular Hemoglobin 31.4 pg Mean Corpuscular Hemoglobin Concent 32.7 g/dl Platelet Count 171 K/uL Mean Platelet Volume 9.3 fL Neutrophils (%) (Auto) 94.1 % Lymphocytes (%) (Auto) 3.1 % Monocytes (%) (Auto) 2.1 % Eosinophils (%) (Auto) 0.1 % Basophils (%) (Auto) 0.0 % Neutrophils # (Auto) 13.58 K/uL Lymphocytes # (Auto) 0.44 K/uL Monocytes # (Auto) 0.30 K/uL Eosinophils # (Auto) 0.02 K/uL Basophils # (Auto) 0.00 K/uL RDW Standard Deviation 50.3 fL RDW Coefficient of Variation 14.3 % Immature Granulocyte % (Auto) 0.6 % Immature Granulocyte # (Auto) 0.08 K/uL Venous Blood pH 7.34 Venous Blood Partial Pressure CO2 75 mmHg Venous Blood Partial Pressure O2 32 mmHg Venous Blood HCO3 40 mmol/L Venous Blood Oxygen Saturation < 60.0 % Venous Blood Base Excess 11.0 mmol/L Sodium Level 142 mmol/L Potassium Level 4.1 mmol/L Chloride Level 99 mmol/L Carbon Dioxide Level 41 mmol/L Anion Gap 2.0 mmol/L Blood Urea Nitrogen 21 mg/dl Creatinine 0.61 mg/dl Est Creatinine Clear Calc Drug Dose 87.7 ml/min Estimated GFR () 123.2 Estimated GFR (Non- 106.3 BUN/Creatinine Ratio 34.4 Random Glucose 153 mg/dl Calcium Level 8.8 mg/dl Troponin I < 0.015 ng/ml Prothrombin Time 10.8 SECONDS Prothromb Time International Ratio 1.0 Activated Partial Thromboplast Time 24.3 SECONDS Partial Thromboplastin Ratio 0.9 Assessment & Plan Palliative Performance Scale: 50 % Problem list: Shortness of breath End-stage COPD Palliative care recommendations: discussed with patient, Nelda, and Dr. Perry. -Home with hospice. Did receive call from and they chose [facility]. Patient qualifies for hospice due to end-stage COPD. -Goal is to be in the home, stay out of the hospital. Focus on comfort. -Recommend ordering Roxanol 5mg PO Q2h PRN pain or SOB. Roxanol is such a miniscule amount of fluid that it really doesn't need to be swallowed. I explained this already to the and patient, we also discussed risk of increased narcotic. Also advised them to save this for when patient is not able to take his pills. -Okay to continue Roxicodone 5mg Q4h PO PRN. -Continue Morphine pills as patient is already tolerant to this dose. -Ativan should be changed to sublingual. -Defer to primary medical team for recs on steroid taper/dosing. Thank you kindly for this consult. I will continue to follow.
[2017-02-14] MEDS: GLYCOPYRROLATE INH SCH (17:14)
[2017-02-14] MEDS: [UNRECOGNIZED DRUG - OTHER] INH SCH (17:14)
[2017-02-14] MEDS ORDERED: ATORVASTATIN 40 MG TAB PO SCH (21:00)
[2017-02-14 23:49] VITALS: BP 118/78; PULSE 83; TEMP 36.5; O2SAT 98
[2017-02-15] MEDS: METHYLPREDNISOLONE IV 60 MG in SYRINGE 0 ML IV SCH ×3 (01:54→13:11)
[2017-02-15] MEDS: MoRPHine SULFATE 4 MG/ML 1 ML CARP\\VIAL IV PRN ×5 (01:55→16:06)
[2017-02-15] MEDS: LEVOTHYROXINE 88 MCG TAB PO SCH (06:01)
[2017-02-15] MEDS: HEPARIN SOD 5000 UNIT/0.5 ML CARP SQ SCH ×2 (06:02→13:10)
[2017-02-15 07:27] VITALS: BP 135/75; PULSE 72; TEMP 36.4; O2SAT 99
[2017-02-15] MEDS: TIOTROPIUM BROMIDE 5 PUFF/90 MCG INH INH SCH (07:38)
[2017-02-15] MEDS: GLYCOPYRROLATE INH SCH (07:38)
[2017-02-15] MEDS: [UNRECOGNIZED DRUG - OTHER] INH SCH (07:38)
[2017-02-15] MEDS: CLOPIDOGREL BISULFATE 75 MG TAB PO SCH (07:39)
[2017-02-15] MEDS: CARVEDILOL 6.25 MG TAB PO SCH (07:39)
[2017-02-15] MEDS: THEOPHYLLINE 400MG CONTROLLED REL TAB PO SCH (07:40)
[2017-02-15] MEDS: PANTOprazole SOD 40 MG TAB PO SCH (07:40)
[2017-02-15] MEDS ORDERED: BOOST PLUS VANILLA PO SCH ×2 (08:00)
[2017-02-15] MEDS ORDERED: PRED10TA PO ×2 (11:00→11:19)
[2017-02-15] MEDS ORDERED: RXNS20 PO (11:00)
--- NOTE | 2017-02-15 11:12 | Discharge Instructions ---
Discharge Instructions Date of Service Feb 15, 2017. Admission Reason for Admission: Copd Exacerbation Discharge Discharge Diagnosis / Problem: COPD exacerbation Discharge Goals Goal(s): Decrease discomfort, Improve function, Increase independence, Improve disease control, Improve nutritional status, Learn about illness, Diagnostic testing, Therapeutic intervention, Screening, Prevent Disease Progression, Specific goals Activity Recommendations Activity Limitations: resume your previous activity . Instructions / Follow-Up Instructions / Follow-Up You came in with Shortness of Breath secondary to COPD exacerbation - Please take medication as prescribed - Please follow up with PCP, Dr. Ramos - If you experience worsening Shortness of breath, Chest pain, Fevers/ chills, alert Home Hospice personnel, call Clinic or if you feel concerned, return to Emergency Dept for evaluation Current Hospital Diet Patient's current hospital diet: Regular Diet Discharge Diet Recommended Diet: Regular Diet Pending Studies Studies pending at discharge: no Medical Emergencies . Who to Call and When: Medical Emergencies: If at any time you feel your situation is an emergency, please call 911 immediately. . Non-Emergent Contact Non-Emergency issues call your: Primary Care Provider Call Non-Emergent contact if: temperature is above 100.5, your pain is not controlled, your pain is worsening, your pain is unusual for you, your pain is concerning you, wound has increased drainage, wound has increased redness, wound has increased pain, you have any medication questions . . "Provider Documentation" section prepared by Félix Perry. . VTE Core Measure Inpt VTE Proph given/why not?: Unfractionated heparin SQ
[2017-02-15 14:29] VITALS: BP 135/75; PULSE 72; TEMP 36.4; O2SAT 99
--- NOTE | 2017-02-15 16:57 | Discharge Summary ---
Discharge Summary Date of Service Feb 15, 2017. (Félix Perry MD) Discharge Summary Admission Date: Feb 14, 2017 at 01:50 Discharge Date: Feb 15, 2017 Discharge Disposition: Home with services (Home Hospice) Principal Diagnosis: COPD Exacerbation Problems/Secondary Diagnoses: (1) Anxiety Status: Chronic (2) COPD (chronic obstructive pulmonary disease) Status: Chronic (3) Coronary Atherosclerosis Of [place] Coronary Vessel Status: Chronic (4) Dyslipidemia Status: Chronic (5) Hypertension Nos Status: Chronic (6) Hypothyroidism Status: Chronic (7) Supplemental Oxygen Status: Chronic Immunizations: Have You Had Influenza Vaccine: Yes Influenza Vaccine Date: Jul 18, 2011 History of Tetanus Vaccine?: Yes History of Pneumococcal: Yes Pneumococcal Date: Jul 18, 2011 History of Hepatitis B Vaccine: No Procedures: SINGLE VIEW CHEST CLINICAL HISTORY: Emphysema. FINDINGS: An AP, portable, upright chest radiograph is compared to study dated 02/05/2017 and correlated with chest CT dated 05/06/2016. The examination is severely degraded by portable technique and patient rotation. The right chest wall is collimated from view. The heart is top normal for projection and there is atherosclerotic calcification of the thoracic aorta. The pulmonary vasculature is noncongested. Advanced emphysema and chronic interstitial thickening are similar to previous. No airspace consolidation, large pleural effusion, or pneumothorax is seen. The skeletal structures are osteopenic. The bony thorax is grossly intact. IMPRESSION: Advanced emphysema with no acute cardiopulmonary abnormality. (Félix Perry MD) Medication Reconciliation New Medications: Morphine Sulfate (Morphine Sulfate) 20 Mg/1 Ml Soln 5 MG PO Q2H PRN for Severe Dyspnea for 30 Days, #30 ML Prednisone (Prednisone) 10 Mg Tab 10 MG PO DIRECTED for copd, #42 TAB 0 Refills (1)Take 6 tabs for 3 days (2)Take 4 Tabs for 3 days (3)Take 2 Tabs daily Continued Medications: Albuterol Hfa (Ventolin Hfa) 200 Puffs/17268 Mcg Aers 2 PUFFS INH QID PRN for Wheezing Atorvastatin (Atorvastatin Calcium) 40 Mg Tab 40 MG PO HS Carvedilol (Carvedilol) 6.25 Mg Tab 6.25 MG PO BID Clopidogrel Bisulfate (Clopidogrel) 75 Mg Tab 75 MG PO DAILY Glycopyrrolate-Formoterol [place] (Bevespi Aerosphere 9-4.8 Mcg/Act) 1 Aer Aer 2 PUFF INH BID Hyoscyamine Sulfate (Hyoscyamine Sulfate) 0.125 Mg Tab 0.125 MG PO Q6H PRN for Abdominal Pain Levothyroxine Sodium (Synthroid) 88 Mcg Tab 88 MCG PO DAILY, #90 Morphine Sulfate Ir (Morphine Sulfate Ir) 15 Mg Tab 15-30 MG PO Q4H PRN for Pain Take no more than 5 tablets per day Nitroglycerin (Nitrostat) 0.4 Mg Tab 0.4 MG UT UD PRN for Chest Pain PLACE ONE TABLET UNDER THE TONGUE EVERY 5 MINUTES FOR UP TO 3 DOSES OVER 15 MINUTES IF NEEDED FOR CHEST PAIN Oxycodone Immediate Rel Tab (Roxicodone Ir) 5 Mg Tab 1-2 TAB PO Q4H PRN for Shortness of Breath, #12 TAB Oxygen (Oxygen) Gas 2-3 LITER NA CONTINOUS Pantoprazole Sodium (Protonix) 20 Mg Tab 40 MG PO DAILY Temazepam (Temazepam) 15 Mg Cap 15 MG PO HS PRN for Sleep Theophylline (Williams-24) 200 Mg Cap 400 MG PO DAILY Tiotropium [place] (Spiriva Handihaler) 30 Puff/540 Mcg Aerp 1 PUFF INH DAILY Discharge Exam Constitutional: No chills, No fever, No weakness, No weight loss Respiratory: + cough, + shortness of breath, + sputum Cardiovascular: No PND, No chest pain, No edema, No orthopnea, No palpitations Abdomen: No constipation, No diarrhea, No nausea, No pain, No vomiting Musculoskeletal: No calf pain, No swelling Male : No dysuria, No urinary frequency Neurologic: No numbness/tingling, No vertigo Psychiatric: No anxiety Skin: No itch, No rash General Appearance: WD/WN, no apparent distress, + thin Respiratory/Chest: chest non-tender, lungs clear, no accessory muscle use, + pertinent finding (dec'd breath sounds aime lung bases, no wheezing no rales, no rhonchi) Cardiovascular: regular rate, rhythm, no edema, no murmur Abdomen: normal bowel sounds, non tender, soft Extremities: normal inspection, no pedal edema, no calf tenderness Neurologic/Psychiatric: alert, normal mood/affect, oriented x 3 Skin: normal color, warm/dry (Félix Perry MD) Hospital Course This is a 60 yo M w/ hx of End-stage COPD on 2-3L O2 at home, with several previous hospital visits for COPD exacerbation, CAD, Hypothyroidism p/w 1-2 days of Acute worsening of Shortness of Breath. Patient had previously attempted to get pulmonary transplant but was denied to weight loss, poor constitution. Patient was saturating well on arrival on 3L. Patient was afebrile , with a Wht Ct of 14 which was attributed to patient haveing been on Prednisone 20 mg daily at home.Patient reported he had reviously used IV morphine for severe SOB. CXR showed advanced emphysema with no acute abnormalities. Patient was placed on IV Solu-medrol 60 mg q6h and given home inhalers Albuterol , Spriva. Patient refused nebulizer treatments due to prior adverse reaction. During hospital stay, Patient recovered to baseline. Palliative care was consulted and after meeting patient he along with family decided to transition to hospice upon discharge . Patient was sent home with presciption of PO Roxanol 5 mg q2h prn for severe dyspnea as reccomended by palliative care. [facility] was chosen by patient for home hospice service. Total Time Spent: Less than 30 minutes This includes examination of the patient, discharge planning, medication reconciliation, and communication with other providers. (Félix Perry MD) Resident Physician Supervision Note: I was present with Dr. Perry during the history and exam. I discussed the case with the resident and agree with the findings and plan as documented in the note. Any exceptions or clarifications are listed here: The patient and his have chosen a hospice service who will meet with them prior to discharge today. Based on the patient's diagnosis and recent progression of symptoms resulting in multiple hospitalizations, I feel that is an appropriate candidate for hospice services. Documented By: Chuck Romero Total Time Spent: Greater than 30 minutes Discharge this patient took 40 minutes. (Chuck Romero.,D.O.) Discharge Instructions Please refer to the electronic Patient Visit Report (Discharge Instructions) for additional information. (Félix Perry MD)
== END 2017-02-15 16:32 | disposition home or self-care (01) | DRG 191 ==
LOC: ENRESERVTM → ENRESERVDT → EDBD 22:43 → C.EDB 22:48 → C.4E 02-14 01:50
PROVIDERS: ADMIT Internal Medicine; ATTEND Family Medicine
DX: J44.1 Chronic obstructive pulmonary disease with (acute) exacerbation (principal); R64 Cachexia; Z68.1 Body mass index [BMI] 19.9 or less, adult; E03.9 Hypothyroidism, unspecified; I25.10 Atherosclerotic heart disease of native coronary artery without angina pectoris; F41.9 Anxiety disorder, unspecified; E78.5 Hyperlipidemia, unspecified; I10 Essential (primary) hypertension; Z87.01 Personal history of pneumonia (recurrent); Z95.5 Presence of coronary angioplasty implant and graft; Z99.81 Dependence on supplemental oxygen; Z79.899 Other long term (current) drug therapy; Z88.8 Allergy status to other drugs, medicaments and biological substances; Z88.3 Allergy status to other anti-infective agents; Z51.5 Encounter for palliative care

== ENCOUNTER 2017-02-26 19:07 | Emergency (ER) | payer BC ==
[~2017-02-26] VITALS: Ht 162.6 cm; Wt 46.3 kg
[~2017-02-26 19:07] MED LIST changes: +LEVO88TA PO; +PRED10TA PO; -PRED20TA PO; +RXNS20 PO
[2017-02-26] MEDS: LEVALBUTEROL 1.25MG/3ML NEB INH STA (19:13)
[2017-02-26] MEDS ORDERED: ONDANSETRON INJ 2 MG/ML 2 ML VIAL IV STA (19:13)
[2017-02-26] MEDS: MoRPHine SULFATE 10 MG/ML CARP/VIAL IV PRN ×2 (19:27→23:04)
[2017-02-26 19:35] VITALS: TEMP 36.4; O2SAT 100; Ht 162.6 cm; Wt 46.3 kg
--- NOTE | 2017-02-26 19:47 | EMERGENCY ROOM VISIT NOTE ---
History Report prepared by Radhika: Yvette Orona Under the Supervision of: Dr. Hugo lAston D.O. First contact with patient: 19:08 Stated Complaint: RESPIRATORY History of Present Illness The patient is a 61 year old male who presents to the Emergency Room with complaints of worsening respiratory distress starting earlier today. He presents to the ED by EMS. He was given 125 mg of Solu-Medrol en route. The history is limited due to the patient's respiratory distress. Source of History: EMS History Limited By: other (respiratory distress) Onset: earlier today Position: other (respiratory) Quality: other (distress) Timing: worsening Review of Systems Unobtainable due to patient's respiratory distress. Past Medical & Surgical Medical Problems: (1) Acute respiratory failure (2) Anxiety (3) ARDS (adult respiratory distress syndrome) (4) CAD (coronary artery disease) (5) Chest pain (6) Constipation (7) COPD (chronic obstructive pulmonary disease) (8) COPD (chronic obstructive pulmonary disease) (9) COPD exacerbation (10) COPD exacerbation (11) COPD exacerbation (12) COPD exacerbation (13) COPD exacerbation (14) COPD exacerbation (15) Coronary Atherosclerosis Of [place] Coronary Vessel (16) Dyslipidemia (17) Emphysema (18) Hypertension Nos (19) Hypothyroidism (20) Pneumonia (21) Respiratory distress (22) Respiratory failure (23) Severe persistent cold-induced asthma with acute exacerbation (24) Supplemental Oxygen (25) Very severe chronic obstructive pulmonary disease Surgical Problems: (1) History of tonsillectomy (2) Percutaneous Translum Coron Angioplasty Status (3) Stented coronary artery Family History Not obtainable due to adoption Social History Smoking Status: Never Smoker Alcohol Use: none Drug Use: none Marital Status: Housing Status: lives with family Occupation Status: retired Current/Historical Medications Scheduled Atorvastatin (Atorvastatin Calcium), 40 MG PO HS Carvedilol (Carvedilol), 6.25 MG PO BID Clopidogrel Bisulfate (Clopidogrel), 75 MG PO DAILY Glycopyrrolate-Formoterol Fuma (Bevespi Aerosphere 9-4.8 Mcg/Act), 2 PUFF INH BID Levothyroxine Sodium (Synthroid), 88 MCG PO DAILY Oxygen (Oxygen), 2-3 LITER NA CONTINOUS Pantoprazole Sodium (Protonix), 40 MG PO DAILY Prednisone (Prednisone), 10 MG PO DIRECTED Theophylline (Williams-24), 400 MG PO DAILY Tiotropium [place] (Spiriva Handihaler), 1 PUFF INH DAILY Scheduled PRN Albuterol Hfa (Ventolin Hfa), 2 PUFFS INH QID PRN for Wheezing Hyoscyamine Sulfate (Hyoscyamine Sulfate), 0.125 MG PO Q6H PRN for Abdominal Pain Morphine Sulfate (Morphine Sulfate), 5 MG PO Q2H PRN for Severe Dyspnea Morphine Sulfate Ir (Morphine Sulfate Ir), 15-30 MG PO Q4H PRN for Pain Nitroglycerin (Nitrostat), 0.4 MG UT UD PRN for Chest Pain Oxycodone Immediate Rel Tab (Roxicodone Ir), 1-2 TAB PO Q4H PRN for Shortness of Breath Temazepam (Temazepam), 15 MG PO HS PRN for Sleep Allergies Coded Allergies: Doxycycline (Unverified Allergy, Intermediate, TURNS RED, 02/13/17) Albuterol (Verified Allergy, Mild, hypoxia, 02/13/17) Azithromycin (Verified Allergy, Mild, hypoxia, 02/13/17) Ipratropium (Verified Allergy, Mild, hypoxia, 02/13/17) Levofloxacin (Verified Allergy, Mild, hypoxia, 02/13/17) Arformoterol (Unverified Allergy, Unknown, UNKNOWN, 02/26/17) Budesonide (Unverified Allergy, Unknown, UNKNOWN, 02/26/17) Cromolyn (Unverified Allergy, Unknown, UNKNOWN, 02/26/17) Edetic Acid (Unverified Allergy, Unknown, UNKNOWN, 02/26/17) Levalbuterol Hydrochloride (Unverified Allergy, Unknown, UNKNOWN, 02/26/17) Sorbitan (Unverified Allergy, Unknown, UNKNOWN, 02/26/17) Physical Exam Vital Signs Date Time Temp Pulse Resp B/P Pulse Ox O2 Delivery O2 Flow Rate FiO2 02/26/17 23:15 115 25 134/100 100 02/26/17 21:00 100 18 117/83 100 Nasal Cannula 15.0 Free Flow/Blowby 02/26/17 19:35 100 Free Flow/Blowby 15.0 02/26/17 19:35 100 Free Flow/Blowby 15.0 02/26/17 19:35 100 Free Flow/Blowby 15.0 02/26/17 19:35 36.4 83 28 190/101 100 Free Flow/Blowby 15.0 Physical Exam GENERAL: Patient is awake, alert, very anxious and uncomfortable appearing, in significant respiratory distress. EYES: The conjunctivae are clear. The pupils are round and reactive. EARS, NOSE, MOUTH AND THROAT: The nose is without any evidence of any deformity. Mucous membranes are moist tongue is midline NECK: The neck is nontender and supple. RESPIRATORY: Lung sounds diminished in all lung jacome, significant tachypnea and conversational dyspnea noted, poor air movement throughout. CARDIOVASCULAR: Regular rate and rhythm noted there no murmurs rubs or gallops normal S1 normal S2 GASTROINTESTINAL: The abdomen is soft. Bowel sounds are present in all quadrants. Abdomen is nontender MUSCULOSKELETAL/EXTREMITIES: There is no evidence of gross deformity full range of motion is noted in the hips and shoulders SKIN: There is no obvious evidence of any rash. There are no petechiae, pallor or cyanosis noted. NEUROLOGIC: Patient is awake alert and oriented x3 Medical Decision & Procedures ER Provider Diagnostic Interpretation: X-ray results as stated below per interpretation by me and the radiologist. CHEST ONE VIEW PORTABLE CLINICAL HISTORY: Respiratory distress. COMPARISON STUDY: 02/13/2017 FINDINGS: There is pulmonary emphysema. The heart is normal in size. There is no failure. There is no focal pulmonary consolidation.[ IMPRESSION: Emphysema. No acute findings. Electronically signed by: Remi Ly M.D. 02/26/2017 7:45 PM Dictated Date/Time: 02/26/2017 7:45 PM Laboratory Results 02/26/17 20:10 Red Blood Count 4.43, Mean Corpuscular Volume 97.5, Mean Corpuscular Hemoglobin 30.7, Mean Corpuscular Hemoglobin Concent 31.5, Mean Platelet Volume 8.9, Neutrophils (%) (Auto) 91.9, Lymphocytes (%) (Auto) 3.9, Monocytes (%) (Auto) 2.5, Eosinophils (%) (Auto) 0.9, Basophils (%) (Auto) 0.1, Neutrophils # (Auto) 12.13, Lymphocytes # (Auto) 0.52, Monocytes # (Auto) 0.33, Eosinophils # (Auto) 0.12, Basophils # (Auto) 0.01 02/26/17 20:10 Test 02/26/17 20:10 White Blood Count 13.20 K/uL (4.8-10.8) Red Blood Count 4.43 M/uL (4.7-6.1) Hemoglobin 13.6 g/dL (14.0-18.0) Hematocrit 43.2 % (42-52) Mean Corpuscular Volume 97.5 fL (80-100) Mean Corpuscular Hemoglobin 30.7 pg (25-34) Mean Corpuscular Hemoglobin Concent 31.5 g/dl (32-36) Platelet Count 156 K/uL (130-400) Mean Platelet Volume 8.9 fL (7.4-10.4) Neutrophils (%) (Auto) 91.9 % Lymphocytes (%) (Auto) 3.9 % Monocytes (%) (Auto) 2.5 % Eosinophils (%) (Auto) 0.9 % Basophils (%) (Auto) 0.1 % Neutrophils # (Auto) 12.13 K/uL (1.4-6.5) Lymphocytes # (Auto) 0.52 K/uL (1.2-3.4) Monocytes # (Auto) 0.33 K/uL (0.11-0.59) Eosinophils # (Auto) 0.12 K/uL (0-0.5) Basophils # (Auto) 0.01 K/uL (0-0.2) RDW Standard Deviation 52.3 fL (36.4-46.3) RDW Coefficient of Variation 14.7 % (11.5-14.5) Immature Granulocyte % (Auto) 0.7 % Immature Granulocyte # (Auto) 0.09 K/uL (0.00-0.02) Prothrombin Time 10.7 SECONDS (9.0-12.0) Prothromb Time International Ratio 1.0 (0.9-1.1) Activated Partial Thromboplast Time 23.2 SECONDS (21.0-31.0) Partial Thromboplastin Ratio 0.9 Anion Gap 2.0 mmol/L (3-11) Est Creatinine Clear Calc Drug Dose 95.2 ml/min Estimated GFR () 131.5 Estimated GFR (Non- 113.5 BUN/Creatinine Ratio 37.9 (10-20) Calcium Level 8.7 mg/dl (8.5-10.1) Total Bilirubin 0.9 mg/dl (0.2-1) Aspartate Amino Transf (AST/SGOT) 17 U/L (15-37) Alanine Aminotransferase (ALT/SGPT) 23 U/L (12-78) Alkaline Phosphatase 130 U/L (45-117) Troponin I < 0.015 ng/ml (0-0.045) Pro-B-Type Natriuretic Peptide 400 pg/ml (0-900) Total Protein 6.2 gm/dl (6.4-8.2) Albumin 3.4 gm/dl (3.4-5.0) Globulin 2.8 gm/dl (2.5-4.0) Albumin/Globulin Ratio 1.2 (0.9-2) Laboratory results per my review. Medications Administered Medications (Trade) Dose Ordered Sig/Mau Route Start Time Stop Time Status Last Admin Dose Admin Morphine Sulfate (MoRPHine SULFATE INJ) 10 mg Q30M PRN IV 02/26/17 19:15 02/27/17 00:09 DC 02/26/17 23:04 10 MG Ondansetron HCl (Zofran Inj) 4 mg NOW STAT IV 02/26/17 19:13 02/26/17 19:16 DC 02/26/17 19:26 4 MG ECG Indication: SOB/dyspnea Rate (beats per minute): 102 Rhythm: sinus tachycardia Findings: no ectopy, other (poor baseline noted, no acute ST segment abnormality) Comparison ECG Date: 13-Feb-2017 Change: no significant change ED Course 1908: The patient was evaluated in room A11B. A complete history and physical examination were performed. 1912: Ordered Levalbuterol 1.25 mg INH (refused), Zofran Inj 4 mg IV. 1914: Ordered Morphine Sulfate 10 mg IV. 2119: Upon reevaluation, the patient is at baseline according to the patient's . She is willing to take him home. I discussed the results and treatment plan with her. She verbalized agreement of the treatment plan. He was discharged home. Medical Decision Prior records/ancillary studies reviewed. Triage Nursing notes reviewed. Additional history obtained from the family. The patient's history was concerning for respiratory difficulties. Differential diagnosis: Etiologies such as infections, reactive airway disease, pneumonia, pneumothorax , COPD, CHF, cardiac ischemia, pulmonary embolism, musculoskeletal, gastrointestinal, as well as others were entertained. The patient is a 61-year-old male who has very severe end-stage COPD. He is currently on hospice. He presented to the emergency department by EMS after his found him to have very significant respiratory distress after trying to do very minimal exertional activity. The patient was treated with IV morphine and IV Solu-Medrol and oxygen in the emergency department. His condition slowly improved. He is very significant reactions to bronchodilator therapy so he would not allow me to give him this treatment. I discussed the patient's laboratory and radiographic studies with him and his significant other. He states that he does not want any treatment at this time. I discussed his case with the emergency department residential case manager. They were able to discuss the case with hospice and or able to set the patient up with a hospice visit this evening. They were discharged to home and encouraged to continue with the hospice therapy. Impression Primary Impression: COPD exacerbation Additional Impressions: Respiratory distress Hypoxia Scribe Attestation The scribe's documentation has been prepared under my direction and personally reviewed by me in its entirety. I confirm that the note above accurately reflects all work, treatment, procedures, and medical decision making performed by me. Departure Information Dispostion Home / Self-Care Referrals Hugo Ramos M.D. (PCP) Forms HOME CARE DOCUMENTATION FORM, IMPORTANT VISIT INFORMATION Patient Instructions My [facility], COPD - [facility] Additional Instructions Continue all medications as prescribed. Rest and avoid any strenuous activity. Problem Qualifiers
[2017-02-26 20:19] LABS: BASO % 0.1 %; BASO ABS # 0.01 K/uL (0-0.2); COMPLETE YES; EOS % 0.9 %; HEMATOCRIT 43.2 % (42-52); IG% 0.7 %; LYMPH % 3.9 %; LYMPH ABS # 0.52 K/uL (1.2-3.4); MEAN CELL VOLUME 97.5 fL (80-100); MEAN CORPUSCULAR HEMOGLOBIN 30.7 pg (25-34); MEAN CORPUSCULAR HGB CONC 31.5 g/dl (32-36); MEAN PLATELET VOLUME 8.9 fL (7.4-10.4); MONO % 2.5 %; NEUT % 91.9 %; PLATELET COUNT 156 K/uL (130-400); RED BLOOD COUNT 4.43 M/uL (4.7-6.1)
[2017-02-26 20:29] LABS: PARTIAL THROMBOPLASTIN RATIO 0.9; PROTHROMBIN TIME (PATIENT) 10.7 SECONDS (9.0-12.0)
[2017-02-26 20:52] LABS: ALB/GLOB RATIO 1.2 (0.9-2); ALKALINE PHOSPHATASE 130 U/L (45-117); ALT/SGPT 23 U/L (12-78); AST/SGOT 17 U/L (15-37); BLOOD UREA NITROGEN 20 mg/dl (7-18); BUN/CREATININE RATIO 37.9 (10-20); CALCIUM 8.7 mg/dl (8.5-10.1); CARBON DIOXIDE 42 mmol/L (21-32); CHLORIDE 96 mmol/L (98-107); CREATININE 0.52 mg/dl (0.60-1.40); GLUCOSE 130 mg/dl (70-99); POTASSIUM 4.4 mmol/L (3.5-5.1); SODIUM 139 mmol/L (136-145)
[2017-02-26 23:15] VITALS: BP 134/100; PULSE 115; O2SAT 100
== END 2017-02-26 23:17 | disposition home or self-care (01) ==
LOC: EDBD 19:07 → C.EDA 19:08
DX: J44.1 Chronic obstructive pulmonary disease with (acute) exacerbation (principal); J80 Acute respiratory distress syndrome; R09.02 Hypoxemia; R00.0 Tachycardia, unspecified; F41.9 Anxiety disorder, unspecified; I25.10 Atherosclerotic heart disease of native coronary artery without angina pectoris; E78.5 Hyperlipidemia, unspecified; I10 Essential (primary) hypertension; E03.9 Hypothyroidism, unspecified; Z95.5 Presence of coronary angioplasty implant and graft